=== PATIENT | male | born 1970 | race Caucasian/White ===

== ENCOUNTER 2017-06-28 11:05 | Observation (INO) | payer OTHER ==
[2017-06-28] VITALS (13 sets, daily range): BP systolic 109–155; BP diastolic 56–93; PULSE 70–100; TEMP 36.5–37.1; O2SAT 91–100; BMI 46.4
[~2017-06-28] VITALS: Ht 175.3 cm; Wt 150.6 kg
[~2017-06-28 11:05] MED LIST: ACYC1CAP8 PO; ANDG TOP; CIPR1TAB11 PO; DOCU100C31 PO; FLUC200T4 PO; HCTZ PO; LOSARTAN PO; ONDA4TAB46 PO; PROC1TAB5 PO; [UNRECOGNIZED DRUG - REMARK] PO
[2017-06-28] MEDS ORDERED: POLYETHYLENE (MIRALAX) 17 GM PACK PO PRN (13:00)
[2017-06-28] MEDS ORDERED: ACETAMINOPHEN 325 MG TAB PO PRN (13:00)
[2017-06-28] MEDS ORDERED: ONDANSETRON INJ 2 MG/ML 2 ML VIAL IV PRN (13:00)
[2017-06-28] MEDS ORDERED: ACETAMINOPHEN 325 MG TAB PO ONE (13:45)
[2017-06-28] MEDS ORDERED: HYDR25TA4 PO (13:47)
[2017-06-28] MEDS ORDERED: ACYC400T PO (13:47)
[2017-06-28] MEDS ORDERED: [UNRECOGNIZED DRUG - CODE] TD (13:47)
[2017-06-28] MEDS ORDERED: LOSA1TAB PO (13:47)
[2017-06-28] MEDS ORDERED: ONDA8TAB62 SL (13:47)
[2017-06-28] MEDS ORDERED: CIPR-255 PO (13:47)
[2017-06-28] MEDS ORDERED: FUROSEMIDE INJ 40 MG in SYRINGE 0 ML IV ONE (14:00)
[2017-06-28] MEDS ORDERED: DOCUSATE SODIUM 100 MG CAP PO PRN (14:00)
[2017-06-28] MEDS ORDERED: ONDANSETRON 8MG OD TAB SL PRN (14:00)
[2017-06-28] MEDS ORDERED: PROCHLORPERAZINE MALEATE 10 MG TAB PO PRN (14:00)
--- NOTE | 2017-06-28 14:03 | History and Physical ---
History & Physical Date & Time of Service: Jun 28, 2017 at 13:57 Chief Complaint: Thrombocytopenia Primary Care Physician: Bettina Murcia D.O. History of Present Illness Source: patient, clinic records, hospital records 47 yo M presents with severe pancytopenia in need of transfusions. With multiple transfusions in the past from this chronic MDS on chemotherapy, he has multiple antibodies that will need to be cleared through the lab initially. The amount of time for the transfusions needed will require an overnight stay. He is currently asymptomatic aside from a worsening of his chronic fatigue and dyspnea on exertion, which he says occurs when his counts get low. He was recently admitted to [facility] for neutropenic fever from -06/12/17 and states that since that time he has been feeling well. He is compliant with his suppressive therapy. He has a small bug bite that appears slightly ecchymotic on exam which is located on his R thigh just superior to his knee. He also reports some sores in his mouth from dentures that are minor. Otherwise he denies any chest pain, headaches, abdominal pain, nausea, vomiting, diarrhea, blood per rectum. He has been tolerating PO and has been active in his hobbies and in good spirits. Past Medical/Surgical History Medical Problems: (1) Congenital heart anomaly Status: Chronic (2) H/O venous thrombosis and embolism Status: Chronic (3) Hypogonadism in male Status: Chronic (4) Klinefelter syndrome karyotype 47, xxy Status: Chronic (5) MDS (myelodysplastic syndrome) Status: Chronic (6) Morbid obesity Status: Chronic (7) RENE (obstructive sleep apnea) Status: Chronic (8) Pancytopenia Status: Chronic Surgical Problems: (1) Heart valve replaced Status: Chronic (2) Status post knee surgery Status: Chronic (3) Status post tooth extraction Status: Chronic Family History Early CAD BROTHER BROTHER BROTHER FH: CAD (coronary artery disease) FATHER FH: colon cancer MOTHER FH: leukemia SISTER (40s) Social History Smoking Status: Never Smoker Smokeless Tobacco Use: No Alcohol Use: none Drug Use: none Marital Status: in relationship Housing status: lives alone Occupational Status: other Immunizations History of Influenza Vaccine: Yes Influenza Vaccine Date: Jul 18, 2009 History of Tetanus Vaccine?: Yes Tetanus Immunization Date: May 08, 2014 History of Pneumococcal: No History of Hepatitis B Vaccine: Yes Hepatitis Immunization Date: Nov 01, 2003 Multi-Drug Resistant Organisms History of MDRO: No Allergies Coded Allergies: Aspirin (Verified Allergy, Severe, ANAPHYLAXIS, 06/02/17) Penicillins (Verified Allergy, Intermediate, HIVES, 06/02/17) Cabbage (Verified Allergy, Unknown, "THROAT CLOSES", 06/02/17) Cyclobenzaprine (Verified Allergy, Unknown, DIARRHEA, 06/02/17) Hydrocodone (Verified Allergy, Unknown, ITCH, 06/02/17) Ibuprofen (Verified Allergy, Unknown, rash, 06/02/17) Home Medications Scheduled Acyclovir (Acyclovir), 400 MG PO BID Ciprofloxacin Hcl (Cipro), 500 MG PO BID Fluconazole (Diflucan), 200 MG PO DAILY Hydrochlorothiazide (Hctz), 1 TAB PO DAILY Losartan Potassium (Cozaar), 25 MG PO DAILY Testosterone (Testosterone Pump), 5 GM TD DAILY Scheduled PRN Docusate Sodium (Docusate Sodium), 1 CAP PO BID PRN for Constipation Ondansetron Odt (Zofran Odt), 8 MG SL Q6H PRN for Nausea Prochlorperazine Maleate (Compazine), 10 MG PO Q6H PRN for nausea Review of Systems At least ten systems were reviewed and negative except as indicated in HPI. 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 Pancytopenia-pt with symptomatic anemia requiring blood. Also with platelet level of 3K, requires platelet transfusion. Two of each were ordered with pretreatment with APAP and Benadryl. He is otherwise stable with no evidence of fevers or other signs/symptoms of infection. Repeat labwork in am. Cont chronic suppressive therapy. 2. HTN-controlled on HCTZ and Cozaar per outpatient regimen. DVT proh-SCDs, otherwise chemoprophy contraindicated 2/2 anemia and severe thrombocytopenia. Full Code Neutropenic precautions. Dispo-cont inpatient hospitalization until numbers rise and are stable, poss home tomorrow. DO Luis En[facility] Hospitalist Level of Care Med/Surg Resuscitation Status FULL RESUSCITATION VTE Prophylaxis VTE Risk Assessment Done? Y/N: Yes Risk Level: Moderate Given or contraindicated: SCD's, Contraindicated
[2017-06-28] MEDS ORDERED: IV FLUIDS COMPLETED PRN (14:45)
[2017-06-28] MEDS: ACYCLOVIR 400 MG TAB PO SCH (20:30)
[2017-06-28] MEDS: CIPROFLOXACIN 500 MG TAB PO SCH (20:31)
[2017-06-29] VITALS (13 sets, daily range): BP systolic 106–130; BP diastolic 66–85; PULSE 65–98; TEMP 36.3–37.4; O2SAT 94–100; BMI 48.2
[2017-06-29 06:46] LABS: BUN/CREATININE RATIO 22.2 (10-20); CALCIUM 8.1 mg/dl (8.5-10.1); CREATININE 1.1 mg/dl (0.60-1.40); POTASSIUM 3.6 mmol/L (3.5-5.1)
[2017-06-29 06:52] LABS: HEMATOCRIT 19.3 % (42-52); MEAN CELL VOLUME 81.8 fL (80-100); MEAN CORPUSCULAR HEMOGLOBIN 28.4 pg (25-34); MEAN CORPUSCULAR HGB CONC 34.7 g/dl (32-36); PLATELET COUNT 10 K/uL (130-400); RED BLOOD COUNT 2.36 M/uL (4.7-6.1); WHITE BLOOD COUNT 0.64 K/uL (4.8-10.8)
[2017-06-29 07:22] LABS: COMPLETE YES; EOS % 3.1 %; LYMPH % 87.5 %; LYMPH ABS # 0.56 K/uL (1.2-3.4); MONO % 3.1 %; NEUT % 6.3 %
[2017-06-29 07:26] LABS: PLT ESTIMATE SIGNIFIC DECREASED
[2017-06-29] MEDS ORDERED: TESTOSTERONE 5 GM TD SCH (08:00)
[2017-06-29] MEDS: FLUCONAZOLE 100 MG TAB PO SCH (08:22)
[2017-06-29] MEDS: HYDROCHLOROTHIAZIDE 25 MG TAB PO SCH (08:22)
[2017-06-29] MEDS: CIPROFLOXACIN 500 MG TAB PO SCH ×2 (08:22→19:48)
[2017-06-29] MEDS: ACYCLOVIR 400 MG TAB PO SCH ×2 (08:22→19:47)
[2017-06-29] MEDS: LOSARTAN POTASSIUM 25 MG TAB PO SCH (08:22)
[2017-06-29] MEDS ORDERED: ACETAMINOPHEN 325 MG TAB PO SCH (08:30)
[2017-06-29] MEDS ORDERED: FUROSEMIDE INJ 20 MG in SYRINGE 0 ML IV SCH (08:30)
--- NOTE | 2017-06-29 14:09 | Progress Note ---
Medicine Progress Note Date & Time of Visit: Jun 29, 2017 at 14:05. Subjective patient seen resting in bed, comfortable, alert, in good spirits states he feels ok overall denies chest pain, dyspnea, palpitations, dizziness, bleeding no other symptoms Objective Last 8 Hrs Date Time Temp Pulse Resp B/P (MAP) Pulse Ox O2 Delivery O2 Flow Rate FiO2 06/29/17 11:37 36.5 71 18 106/72 (83) 100 Room Air 06/29/17 09:45 36.4 85 16 125/85 99 06/29/17 09:30 36.4 84 16 118/77 100 06/29/17 09:11 36.7 78 18 130/82 06/29/17 08:15 Room Air 06/29/17 07:40 36.5 79 20 129/83 (98) 100 Room Air Physical Exam: General- oriented x 3, not in distress, speaks in sentences with no effort Eyes- EOMI, anicteric Neck- supple, no JVD Lungs- clear breath sounds bilaterally Heart- regular rhythm; no murmur, normal rate Abdomen- normal bowel sounds, soft, nontender Extremities- trace pretibial edema, no calf tenderness Neuro- alert, oriented x 3; no gross focal deficits Skin- warm & dry Laboratory Results: Last 24 Hours Test 06/29/17 05:50 White Blood Count 0.64 K/uL Red Blood Count 2.36 M/uL Hemoglobin 6.7 g/dL Hematocrit 19.3 % Mean Corpuscular Volume 81.8 fL Mean Corpuscular Hemoglobin 28.4 pg Mean Corpuscular Hemoglobin Concent 34.7 g/dl Platelet Count 10 K/uL Neutrophils (%) (Auto) 6.3 % Lymphocytes (%) (Auto) 87.5 % Monocytes (%) (Auto) 3.1 % Eosinophils (%) (Auto) 3.1 % Basophils (%) (Auto) 0.0 % Neutrophils # (Auto) 0.04 K/uL Lymphocytes # (Auto) 0.56 K/uL Monocytes # (Auto) 0.02 K/uL Eosinophils # (Auto) 0.02 K/uL Basophils # (Auto) 0.00 K/uL RDW Standard Deviation 43.8 fL RDW Coefficient of Variation 14.8 % Immature Granulocyte % (Auto) 0.0 % Immature Granulocyte # (Auto) 0.00 K/uL Platelet Estimate SIGNIFIC DECREASED Red Blood Cell Morphology Unremarkable Sodium Level 139 mmol/L Potassium Level 3.6 mmol/L Chloride Level 102 mmol/L Carbon Dioxide Level 31 mmol/L Anion Gap 6.0 mmol/L Blood Urea Nitrogen 24 mg/dl Creatinine 1.10 mg/dl Est Creatinine Clear Calc Drug Dose 116.9 ml/min Estimated GFR () 90.9 Estimated GFR (Non- 78.4 BUN/Creatinine Ratio 22.2 Random Glucose 96 mg/dl Calcium Level 8.1 mg/dl Assessment & Plan 47 yo M with pancytopenia 2/2 MDS on chemotherapy with last treatment 06/18/17 presents for transfusion 1. Pancytopenia - s/p 2 units pRBC and 1 plateletpharesis - Hg 6.7 Plt 10k - discussed with Dr. Chávez he recommends 2 more units of PRBC and 1 unit platelet, then discharge repeat CBC on ff up with him as outpatient - Cont chronic suppressive therapy. 2. HTN-controlled on HCTZ and Cozaar per outpatient regimen. DVT proh-SCDs, otherwise chemoprophy contraindicated 2/2 anemia and severe thrombocytopenia. Full Code Neutropenic precautions. Dispo-cont inpatient hospitalization until numbers rise and are stable, poss home tomorrow. Current Inpatient Medications: Current Inpatient Medications Medications (Trade) Dose Ordered Sig/Lamar Route Start Time Stop Time Status Last Admin Dose Admin Acetaminophen (Tylenol Tab) 650 mg Q4H PRN PO 06/28/17 13:00 07/28/17 12:59 Polyethylene (Miralax Powder Packet) 17 gm DAILY PRN PO 06/28/17 13:00 07/28/17 12:59 Ondansetron HCl (Zofran Inj) 4 mg Q6H PRN IV 06/28/17 13:00 07/28/17 12:59 Acyclovir (Zovirax Tab) 400 mg BID PO 06/28/17 20:00 07/28/17 19:59 06/29/17 08:22 400 MG Ciprofloxacin (Cipro Tab) 500 mg BID PO 06/28/17 20:00 07/28/17 19:59 06/29/17 08:22 500 MG Docusate Sodium (coLACE CAP) 100 mg BID PRN PO 06/28/17 14:00 07/28/17 13:59 Fluconazole (Diflucan Tab) 200 mg DAILY PO 06/29/17 08:00 07/29/17 07:59 06/29/17 08:22 200 MG Hydrochlorothiazide (Hydrochlorothiazide Tab) 25 mg DAILY PO 06/29/17 08:00 07/29/17 07:59 06/29/17 08:22 25 MG Losartan Potassium (coZAAR TAB) 25 mg DAILY PO 06/29/17 08:00 07/29/17 07:59 06/29/17 08:22 25 MG Ondansetron HCl (Zofran Odt) 8 mg Q6H PRN SL 06/28/17 14:00 07/28/17 13:59 Prochlorperazine Maleate (Compazine Tab) 10 mg Q6H PRN PO 06/28/17 14:00 07/28/17 13:59 Miscellaneous Information (Order Awaiting Action) 1 ea QS N/A 06/28/17 14:00 07/28/17 13:59 Miscellaneous (Iv Fluids Completed) 1 ea PRN PRN N/A 06/28/17 14:45 06/28/18 14:44 Acetaminophen (Tylenol Tab) 650 mg TODAY@0830 PO 06/29/17 08:30 06/29/17 23:59 Diphenhydramine HCl (Benadryl Cap) 25 mg TODAY@0830 PO 06/29/17 08:30 06/29/17 23:59 Furosemide 20 mg/ Syringe 2 ml @ 4 mls/min TODAY@0830 IV 06/29/17 08:30 06/29/17 23:59
[2017-06-30] VITALS (12 sets, daily range): BP systolic 109–130; BP diastolic 69–81; PULSE 65–92; TEMP 36.2–36.9; O2SAT 96–99; Ht 175.3 cm; Wt 150.6 kg
[2017-06-30] MEDS: HYDROCHLOROTHIAZIDE 25 MG TAB PO SCH (08:10)
[2017-06-30] MEDS: ACYCLOVIR 400 MG TAB PO SCH (08:10)
[2017-06-30] MEDS: LOSARTAN POTASSIUM 25 MG TAB PO SCH (08:11)
[2017-06-30] MEDS: FLUCONAZOLE 100 MG TAB PO SCH (08:11)
[2017-06-30] MEDS: CIPROFLOXACIN 500 MG TAB PO SCH (08:12)
--- NOTE | 2017-06-30 09:53 | Progress Note ---
Medicine Progress Note Date & Time of Visit: Jun 30, 2017 at 09:51. Subjective seen sleeping but easily rousable states he feels fine overall denies chest pain, dyspnea, dizziness, palpitations, bleeding states he feels at baseline, no symptoms states he is ready and would like to be discharged at noon Objective Last 8 Hrs Date Time Temp Pulse Resp B/P (MAP) Pulse Ox O2 Delivery O2 Flow Rate FiO2 06/30/17 09:20 36.3 76 18 109/72 98 06/30/17 09:05 36.2 92 127/81 98 06/30/17 08:40 36.3 83 20 119/76 06/30/17 08:15 Room Air 06/30/17 07:45 36.5 68 18 130/81 06/30/17 07:15 36.6 79 18 123/78 06/30/17 06:45 36.6 80 18 118/76 98 06/30/17 06:30 36.7 70 18 114/75 98 06/30/17 06:15 36.9 65 18 119/75 96 06/30/17 06:15 36.9 65 20 119/75 96 06/30/17 04:06 36.6 91 18 119/76 (90) 96 Room Air Physical Exam: General- oriented x 3, not in distress, speaks in sentences with no effort Eyes- anicteric Neck- no JVD Lungs- clear breath sounds bilaterally, no rales/wheezes Heart- regular rhythm; no murmur, normal rate Abdomen- normal bowel sounds, soft, nontender Extremities- trace pretibial edema, no calf tenderness Neuro- alert, oriented x 3; no gross focal deficits Skin- warm & dry Laboratory Results: Last 24 Hours Test 06/30/17 04:44 Assessment & Plan 47 yo M with pancytopenia 2/2 MDS on chemotherapy with last treatment 06/18/17 presents for transfusion 1. Pancytopenia - discussed with Dr. Chávez recommend prbc and plt transfusion, then ff up as outpatient - s/p 4 units pRBC and 2 plateletepharesis - repeat CBC: Hg 8.6, Plt 13k, WBC 0.68 repeat CBC on ff up with Dr. Chávez as outpatient - Cont chronic suppressive therapy. 2. HTN -controlled on HCTZ and Cozaar per outpatient regimen. d/c home today ff up with Dr. Chávez as scheduled ff up with PCP in 1 week Current Inpatient Medications: Current Inpatient Medications Medications (Trade) Dose Ordered Sig/Lamar Route Start Time Stop Time Status Last Admin Dose Admin Acetaminophen (Tylenol Tab) 650 mg Q4H PRN PO 06/28/17 13:00 07/28/17 12:59 06/29/17 22:32 650 MG Polyethylene (Miralax Powder Packet) 17 gm DAILY PRN PO 06/28/17 13:00 07/28/17 12:59 Ondansetron HCl (Zofran Inj) 4 mg Q6H PRN IV 06/28/17 13:00 07/28/17 12:59 Acyclovir (Zovirax Tab) 400 mg BID PO 06/28/17 20:00 07/28/17 19:59 06/30/17 08:10 400 MG Ciprofloxacin (Cipro Tab) 500 mg BID PO 06/28/17 20:00 07/28/17 19:59 06/30/17 08:12 500 MG Docusate Sodium (coLACE CAP) 100 mg BID PRN PO 06/28/17 14:00 07/28/17 13:59 Fluconazole (Diflucan Tab) 200 mg DAILY PO 06/29/17 08:00 07/29/17 07:59 06/30/17 08:11 200 MG Hydrochlorothiazide (Hydrochlorothiazide Tab) 25 mg DAILY PO 06/29/17 08:00 07/29/17 07:59 06/30/17 08:10 25 MG Losartan Potassium (coZAAR TAB) 25 mg DAILY PO 06/29/17 08:00 07/29/17 07:59 06/30/17 08:11 25 MG Ondansetron HCl (Zofran Odt) 8 mg Q6H PRN SL 06/28/17 14:00 07/28/17 13:59 Prochlorperazine Maleate (Compazine Tab) 10 mg Q6H PRN PO 06/28/17 14:00 07/28/17 13:59 Miscellaneous Information (Order Awaiting Action) 1 ea QS N/A 06/28/17 14:00 07/28/17 13:59 Miscellaneous (Iv Fluids Completed) 1 ea PRN PRN N/A 06/28/17 14:45 06/28/18 14:44
--- NOTE | 2017-06-30 10:02 | Discharge Instructions ---
Discharge Instructions Date of Service Jun 30, 2017. Admission Reason for Admission: Thrombocytopenia Discharge Discharge Diagnosis / Problem: ANEMIA, LOW PLATELETS Discharge Goals Goal(s): Diagnostic testing, Therapeutic intervention Activity Recommendations Activity Limitations: as noted below (RESUME ACTIVITY GRADUALLY TOLERATED) Lifting Limitations: until after follow-up appointment Exercise/Sports Limitations: until after follow-up appointment . Instructions / Follow-Up Instructions / Follow-Up PLEASE CALL YOUR PRIMARY CARE DOCTOR OR CORONER TECHNICIAN IMMEDIATELY OR RETURN TO THE ER IF WITH WEAKNESS, DIZZINESS, SHORTNESS OF BREATH, SIGNS OF BLEEDING. FOLLOW UP WITH DR. GARCIA SCHEDULED. FOLLOW UP WITH PRIMARY CARE PHYSICIAN DR. MEZA ON Wednesday AT 11:30AM. Current Hospital Diet Patient's current hospital diet: AHA Diet (Heart Healthy) Discharge Diet Recommended Diet: AHA Diet (Heart Healthy) Procedures Procedures Performed: PACKED RED BLOOD CELL AND PLATELET TRANSFUSION Pending Studies Studies pending at discharge: yes List of pending studies: REPEAT CBC C/O DR. GARCIA Medical Emergencies . Who to Call and When: Medical Emergencies: If at any time you feel your situation is an emergency, please call 911 immediately. . Non-Emergent Contact Non-Emergency issues call your: Primary Care Provider, Specialist (CORONER TECHNICIAN ) Call Non-Emergent contact if: you have a fever, you have any medication questions . . "Provider Documentation" section prepared by Ko Hargrove. . VTE Core Measure Inpt VTE Proph given/why not?: SCD's, Contraindicated
[2017-06-30 12:05] LABS: BUN/CREATININE RATIO 28.6 (10-20); CALCIUM 8.4 mg/dl (8.5-10.1); CREATININE 0.92 mg/dl (0.60-1.40); POTASSIUM 3.8 mmol/L (3.5-5.1)
--- NOTE | 2017-06-30 12:05 | Discharge Summary ---
Discharge Summary Date of Service Jun 30, 2017. Discharge Summary Admission Date: Jun 28, 2017 at 13:01 Discharge Date: Jun 30, 2017 Discharge Disposition: Home Principal Diagnosis: Pancytopenia Secondary Diagnoses/Problems: HTN Procedures: s/p pRBC and Plt transfusion Pending Studies/Follow-Up: repeat CBC as outpatient Medication Reconciliation Continued Medications: Acyclovir (Acyclovir) 400 Mg Tab 400 MG PO BID, 3 Refills Ciprofloxacin Hcl (Cipro) 500 Mg Tab 500 MG PO BID Docusate Sodium (Docusate Sodium) 100 Mg Cap 1 CAP PO BID PRN for Constipation Fluconazole (Diflucan) 200 Mg Tab 200 MG PO DAILY, TAB Hydrochlorothiazide (Hctz) 25 Mg Tab 1 TAB PO DAILY for 30 Days, #30 TAB 5 Refills Losartan Potassium (Cozaar) 25 Mg Tab 25 MG PO DAILY, 5 Refills Ondansetron Odt (Zofran Odt) 8 Mg Soltab 8 MG SL Q6H PRN for Nausea, TAB Prochlorperazine Maleate (Compazine) 10 Mg Tab 10 MG PO Q6H PRN for nausea, TAB Testosterone (Testosterone Pump) 1 % Gel 5 GM TD DAILY Admission Information HPI (per Admitting provider): 47 yo M presents with severe pancytopenia in need of transfusions. With multiple transfusions in the past from this chronic MDS on chemotherapy, he has multiple antibodies that will need to be cleared through the lab initially. The amount of time for the transfusions needed will require an overnight stay. He is currently asymptomatic aside from a worsening of his chronic fatigue and dyspnea on exertion, which he says occurs when his counts get low. He was recently admitted to [facility] for neutropenic fever from -06/12/17 and states that since that time he has been feeling well. He is compliant with his suppressive therapy. He has a small bug bite that appears slightly ecchymotic on exam which is located on his R thigh just superior to his knee. He also reports some sores in his mouth from dentures that are minor. Otherwise he denies any chest pain, headaches, abdominal pain, nausea, vomiting, diarrhea, blood per rectum. He has been tolerating PO and has been active in his hobbies and in good spirits. 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 PANCYTOPENIA - discussed with Dr. Chávez recommend prbc and plt transfusion, then ff up as outpatient - s/p 4 units pRBC and 2 plateletepharesis - repeat CBC, improved: Hg 8.6, Plt 13k, WBC 0.68 repeat CBC on ff up with Dr. Chávez as outpatient - Cont chronic suppressive therapy. 2. HTN -controlled on HCTZ and Cozaar per outpatient regimen. 3. RIGHT UPPER LEG LESION - possible folliculitis vs. insect bite - area demarcated, improving erythema no tenderness/warmth - monitor as outpatient d/c home today ff up with Dr. Chávez as scheduled ff up with PCP in 1 week Total time spent on discharge = 25 MINUTES This includes examination of the patient, discharge planning, medication reconciliation, and communication with other providers. Discharge Instructions Discharge Instructions Date of Service Jun 30, 2017. Admission Reason for Admission: Thrombocytopenia Discharge Discharge Diagnosis / Problem: ANEMIA, LOW PLATELETS Discharge Goals Goal(s): Diagnostic testing, Therapeutic intervention Activity Recommendations Activity Limitations: as noted below (RESUME ACTIVITY GRADUALLY TOLERATED) Lifting Limitations: until after follow-up appointment Exercise/Sports Limitations: until after follow-up appointment . Instructions / Follow-Up Instructions / Follow-Up PLEASE CALL YOUR PRIMARY CARE DOCTOR OR AIR TRAFFIC CONTROL SPECIALIST IMMEDIATELY OR RETURN TO THE ER IF WITH WEAKNESS, DIZZINESS, SHORTNESS OF BREATH, SIGNS OF BLEEDING. FOLLOW UP WITH DR. CHÁVEZ SCHEDULED. FOLLOW UP WITH PRIMARY CARE PHYSICIAN DR. MEZA ON Wednesday AT 11:30AM. Current Hospital Diet Patient's current hospital diet: AHA Diet (Heart Healthy) Discharge Diet Recommended Diet: AHA Diet (Heart Healthy) Procedures Procedures Performed: PACKED RED BLOOD CELL AND PLATELET TRANSFUSION Pending Studies Studies pending at discharge: yes List of pending studies: REPEAT CBC C/O DR. CHÁVEZ
[2017-06-30 12:09] LABS: HEMATOCRIT 25.3 % (42-52); MEAN CELL VOLUME 83.2 fL (80-100); MEAN CORPUSCULAR HEMOGLOBIN 28.3 pg (25-34); MEAN PLATELET VOLUME 8.8 fL (7.4-10.4); PLATELET COUNT 13 K/uL (130-400); RED BLOOD COUNT 3.04 M/uL (4.7-6.1); WHITE BLOOD COUNT 0.68 K/uL (4.8-10.8)
[2017-06-30 12:10] LABS: COMPLETE YES; EOS % 1.5 %; LYMPH % 86.8 %; LYMPH ABS # 0.59 K/uL (1.2-3.4); MONO % 2.9 %; NEUT % 8.8 %
[2017-06-30 12:11] LABS: PLT ESTIMATE SIGNIFIC DECREASED
== END 2017-06-30 12:24 | disposition home or self-care (01) ==
LOC: C.4E 12:29 → UNDOADMOB 12:29 → C.4E 13:01
PROVIDERS: ADMIT Internal Medicine; ATTEND Internal Medicine
DX: D61.810 Antineoplastic chemotherapy induced pancytopenia (principal); D69.6 Thrombocytopenia, unspecified; D46.9 Myelodysplastic syndrome, unspecified; L98.9 Disorder of the skin and subcutaneous tissue, unspecified; I10 Essential (primary) hypertension; Q98.0 Klinefelter syndrome karyotype 47, XXY; E66.09 Other obesity due to excess calories; G47.33 Obstructive sleep apnea (adult) (pediatric); Z95.2 Presence of prosthetic heart valve; Z82.49 Family history of ischemic heart disease and other diseases of the circulatory system; Z80.0 Family history of malignant neoplasm of digestive organs; Z80.6 Family history of leukemia; Z86.718 Personal history of other venous thrombosis and embolism

== ENCOUNTER 2018-11-09 11:18 | Inpatient (IN) ==
[2018-11-09] MEDS ORDERED: ONDANSETRON INJ 2 MG/ML 2 ML VIAL IV PRN (11:57)
[2018-11-09] MEDS ORDERED: POLYETHYLENE (MIRALAX) 17 GM PACK PO PRN (11:57)
[2018-11-09] MEDS ORDERED: SODIUM CHLORIDE 0.9% 250 ML IV PRN ×2 (12:01→14:05)
[2018-11-09] MEDS ORDERED: ACETAMINOPHEN 325 MG TAB PO ONE (13:15)
[2018-11-09 13:34] LABS: Albumin Level 2.8 gm/dl (3.4-5.0); BUN Creatinine Ratio 27.7 (10-20); Bilirubin Direct 0.1 mg/dl (0-0.2); Calcium 7.9 mg/dl (8.5-10.1); Creatinine Clr Calc Pharmacy 164.4 ml/min; Dohle Bodies 1+; Est GFR (African American) 118.3; Est GFR (Non-African American) 102.1; Hematocrit (blood only) 12.1 % (42-52); Hemoglobin 4.4 g/dL (14.0-18.0); Mean Corpuscular Hgb Conc 36.4 g/dL (32-36); Mean Corpuscular Volume 79.6 fL (80-100); Mean Platelet Volume 8.1 fL (7.4-10.4); Platelet Count 15 K/uL (130-400); Potassium 3.4 mmol/L (3.5-5.1); RDW Coefficient of Variation 12.3 % (11.5-14.5); RDW Standard Deviation 35.3 fL (36.4-46.3); Red Blood Count 1.52 M/uL (4.7-6.1); Toxic Granulation 1+
[2018-11-09 13:36] LABS: ALC (manual) 0.47 K/uL (1.2-3.4); Blast # (manual) 0.01 K/uL (0-0); Lymphocytes # (manual) 0.47 K/uL (1.2-3.4); Lymphocytes % (manual) 78.8 %; Monocytes # (manual) 0.02 K/uL (0.11-0.59); Myelocytes # (manual) 0.01 K/uL (0-0); Neutrophils % (manual) 16.2 %
[2018-11-09 13:37] LABS: Bilirubin,Total 0.4 mg/dl (0.2-1); Total Protein 7.3 gm/dl (6.4-8.2)
[2018-11-09] MEDS ORDERED: TRAMADOL HCL 50 MG TABLET PO PRN (13:43)
--- NOTE | 2018-11-09 14:29 | History & Physical Report ---
Date of Service November 09, 2018 Assessment & Plan (1) Neutropenia: had fevers and chills and diaphoresis at home no cough, no dysuria, no abdominal pain, no altered mental status likely just a neutropenic fever blood cultures drawn cover empirically for 48 hours with Cefepime neutropenic precautions Dr. Chávez following (2) Severe anemia: Hb 4.4 today, will transfuse 4 units total this is due to MDS, patient needs bone marrow transplant, has pancytopenia ordered irradiated PRBC due to neutropenia will give Lasix 20mg IV in between 2nd and 3rd unit repeat H/H in the morning Dr. Chávez following (3) Fever: likely neutropenic fever treat with Tylenol PRN (4) Pancytopenia: due to MDS check CBC daily platelets are 15k (5) MDS (myelodysplastic syndrome): responded well to initial treatment for about one year became refractory to treatment now with bone marrow failure, pancytopenia has required numerous blood transfusions his sister is perfect match for bone marrow transplant plans in place for transplant next week at [facility] follows locally with Dr. Chávez (6) Hypertension: BP stable (7) RENE (obstructive sleep apnea): can use his own machine girlfriend will try to bring it in History of Present Illness Chief Complaint: I broke out in a sweat at home Primary Care Provider: Shruti Hackett PA-C 48 yo male with history of MDS. Initially responded well to treatment under the care of Dr. Chávez. However, after about one year he became refractory to treatment. He developed severe pancytopenia and has relied upon transfusions of platelets and hemoblogin. It quickly became apparent that a bone marrow transplant would be his only hope of cure. He was referred to [facility] to begin the search. It turned out that the patient's sister was perfect match. Initially scheduled to go to [place] this week with sister but delayed due to weather. Yesterday on routine lab work he was severely anemic so Dr. Chávez arranged for transfusion of two units of PRBC today. Last night the patient developed fever, rigors, chills and then significant diaphoresis. He has experienced this before with neutropenic fevers. He denies having any specific symptoms to suggest infection. No cough, no abdominal pain, no dysuria , no altered mental status. Discussed with Dr. Chávez, recommends admission for blood transfusion and treatment for neutropenic fever. Allergies Allergy/AdvReac Type Severity Reaction Status Date / Time aspirin Allergy Severe ANAPHYLAXIS Verified 11/09/18 08:08 ibuprofen Allergy Severe Anaphylaxis Verified 11/09/18 08:08 Penicillins Allergy Intermediate HIVES Verified 11/09/18 08:08 cabbage Allergy Unknown "THROAT Verified 11/09/18 08:08 CLOSES" hydrocodone Allergy Unknown ITCH Verified 11/09/18 08:08 naproxen AdvReac Severe renal Verified 11/09/18 08:08 failure cyclobenzaprine AdvReac Unknown DIARRHEA Verified 11/09/18 08:08 Home Medications Home Medications Medication Instructions Recorded Confirmed Type acyclovir 400 mg PO BID #0 06/28/17 11/09/18 History hydrochlorothiazide 25 mg PO DAILY 30 Days #30 tab 06/28/17 11/09/18 History losartan 25 mg PO DAILY #0 06/28/17 11/09/18 History testosterone 1 packet TRANSDERMAL DAILY #0 06/28/17 11/09/18 History tramadol 50 mg PO Q4H PRN 07/15/18 11/09/18 History sennosides [senna] 8.6 mg PO BID PRN 07/22/18 11/09/18 History acetaminophen [Tylenol Extra 500 mg PO QID PRN 09/09/18 11/09/18 History Strength] allopurinol 300 mg PO DAILY 09/09/18 11/09/18 History gabapentin [Neurontin] 100 mg PO TID 09/29/18 11/09/18 History Past Med/Surg History Family History Other No significant family history Social History Current Living Situation: Other Other Information That Helps Us Care for You: No Feels Safe at Home: Yes Safety Concerns: Feels Safe At This Time Smoking Status: Never smoker Hx Alcohol Use: No Hx Substance Use: No Beliefs That Will Affect Care: Sabianist Preferred Language: Slovak Communication Ability: Effective Review of Systems All systems reviewed & are unremarkable except as noted in HPI & below Constitutional: + fever, + chills, + sweats, + fatigue and + weakness; no weight loss and no insomnia Respiratory: no cough and no dyspnea Cardiovascular: no chest pain Gastrointestinal: no abdominal pain, no nausea, no vomiting, no constipation and no diarrhea/loose stools Physical Exam 2 Vital Signs (Past 24 Hours): Last Vital Signs Temp 36.5 C 11/09/18 13:16 Pulse 81 11/09/18 13:16 Resp 16 11/09/18 13:16 BP 137/78 11/09/18 13:16 Constitutional: WD/WN, vitals as above + obese Eyes: normal visual cardoso by confrontation, + conjunctival abnormality (palor ), PERRL and EOM intact bilaterally ENMT: external ear and nose normal, oropharynx normal Neck: trachea midline, no thyromegaly Respiratory: normal respiratory effort, lungs clear to auscultation Cardiovascular: RRR, no murmur, no edema Gastrointestinal (Abdomen): normal bowel sounds, soft, nontender, no hepatosplenomegaly Musculoskeletal: no cyanosis or clubbing, extremities motor strength 5/5 Skin: no rashes, warm and dry + pallor Neurologic: patellar DTR's 2+ bilat, sensation intact and PERRL, EOMI, accommodation nl, no face palsy, no dysarthria Psychiatric: A+Ox3, euthymic affect Lymphatic: no cervical or axillary lymphadenopathy Results & Data Laboratory Results Laboratory Results - last 24 hr 11/08/18 11/08/18 11/09/18 08:44 10:52 12:29 WBC 0.60 L* RBC 1.52 L Hgb 4.4 L* Hct 12.1 L* MCV 79.6 L MCH 28.9 MCHC 36.4 H RDW Std Deviation 35.3 L RDW Coeff of Olu 12.3 Plt Count 15 L* MPV 8.1 Neutrophils % (Manual) 16.2 Lymphocytes % (Manual) 78.8 Monocytes % (Manual) 3.0 Myelocytes % (Man) 1.0 Blast Cells % (Manual) 1.0 Neutrophils # (Manual) 0.10 L Total Absolute Neuts 0.10 L* Lymphocytes # (Manual) 0.47 L Total Abs Lymphocytes 0.47 L Monocytes # (Manual) 0.02 L Myelocytes # (Manual) 0.01 H Blast Cells # (Man) 0.01 H Toxic Granulation 1+ Dohle Bodies 1+ Platelet Estimate SIGNIFIC DECREASED Sodium Potassium Chloride Carbon Dioxide Anion Gap BUN Creatinine Est Cr Clr Drug Dosing Est GFR ( Amer) Est GFR (Non-Af Amer) BUN/Creatinine Ratio Glucose Calcium Total Bilirubin Direct Bilirubin AST ALT Alkaline Phosphatase Total Protein Albumin Urine Color Urine Appearance Urine pH Ur Specific [place] Urine Protein Urine Glucose (UA) Urine Ketones Urine Blood Urine Nitrite Urine Bilirubin Urine Urobilinogen Ur Leukocyte Esterase Blood Type O Positive Antibody Screen POSITIVE A Antibody Identification Anti-Kpa Antibody ID Referred Crossmatch See Detail 11/09/18 11/09/18 12:29 Unknown WBC RBC Hgb Hct MCV MCH MCHC RDW Std Deviation RDW Coeff of [place]lu Plt Count MPV Neutrophils % (Manual) Lymphocytes % (Manual) Monocytes % (Manual) Myelocytes % (Man) Blast Cells % (Manual) Neutrophils # (Manual) Total Absolute Neuts Lymphocytes # (Manual) Total Abs Lymphocytes Monocytes # (Manual) Myelocytes # (Manual) Blast Cells # (Man) Toxic Granulation Dohle Bodies Platelet Estimate Sodium 138 Potassium 3.4 L Chloride 103 Carbon Dioxide 29 Anion Gap 6.0 BUN 23 H Creatinine 0.84 Est Cr Clr Drug Dosing 164.4 Est GFR ( Amer) 118.3 Est GFR (Non-Af Amer) 102.1 BUN/Creatinine Ratio 27.7 H Glucose 101 H Calcium 7.9 L Total Bilirubin 0.4 Direct Bilirubin 0.1 AST 77 H ALT 224 H Alkaline Phosphatase 74 Total Protein 7.3 Albumin 2.8 L Urine Color Yellow Urine Appearance Clear Urine pH 5.0 Ur Specific [place] 1.012 Urine Protein Negative Urine Glucose (UA) Negative Urine Ketones Negative Urine Blood Negative Urine Nitrite Negative Urine Bilirubin Negative Urine Urobilinogen Negative Ur Leukocyte Esterase Negative Blood Type Antibody Screen Antibody Identification Antibody ID Referred Crossmatch Medications Administered Current Inpatient Medications Acetaminophen (Tylenol) 650 mg PO Q4H PRN PRN Reason: pain/fever Stop: 12/09/18 11:56 Acyclovir (Zovirax) 400 mg PO BID YVETTE Stop: 12/09/18 20:59 Last Admin: 11/09/18 21:47 Dose: 400 mg Allopurinol (Zyloprim) 300 mg PO DAILY [facility] Stop: 12/10/18 08:59 Gabapentin (Neurontin) 100 mg PO TID [facility] Stop: 12/09/18 15:14 Last Admin: 11/09/18 21:47 Dose: 100 mg Cefepime HCl 1,000 mg/ Syringe 11.3 mls @ 5.5 mls/min IV Q12H YVETTE Stop: 11/11/18 13:59 Last Admin: 11/09/18 15:37 Dose: 5.5 mls/min Sodium Chloride (Nss 1000ml) 1,000 mls @ 80 mls/hr IV .[id number] YVETTE Stop: 12/09/18 13:29 Last Admin: 11/09/18 18:31 Dose: 80 mls/hr Sodium Chloride (Nss 250ml) 250 mls @ 15 mls/hr IV .[id number] PRN PRN Reason: For Transfusion Stop: 12/09/18 12:00 Sodium Chloride (Nss 250ml) 250 mls @ 15 mls/hr IV .[id number] PRN PRN Reason: For Transfusion Stop: 12/09/18 14:04 Miscellaneous (Order Awaiting Action) 1 ea N/A QS YVETTE Stop: 12/09/18 15:59 Last Admin: 11/09/18 15:38 Dose: Not Given Ondansetron HCl (Zofran) 4 mg IV Q6H PRN PRN Reason: Nausea Stop: 12/09/18 11:56 Polyethylene Glycol (Miralax Powder Packet) 17 gm PO DAILY PRN PRN Reason: Constipation Stop: 12/09/18 11:56 Sennosides (Senokot) 8.6 mg PO BID PRN PRN Reason: constipation Stop: 12/09/18 13:42 Tramadol HCl (Ultram) 50 mg PO Q4H PRN PRN Reason: Pain Stop: 12/09/18 13:42 Code Status & VTE Plan Code Status full code VTE Prophylaxis Plan VTE Prophylaxis will be ordered: No Reason for no VTE drug order: Contraindicated (thrombocytopenia) Reason for no VTE mechanical prophylaxis: Refusal of treatmnt by pt
--- NOTE | 2018-11-09 14:58 | Consultation Report ---
DATE OF CONSULTATION: 11/09/2018 HEMATOLOGY CONSULTATION REASON FOR CONSULTATION: Neutropenic fever in a 48-year-old gentleman with high-risk myelodysplasia. HISTORY OF PRESENT ILLNESS: Luis A is a pleasant 48-year-old gentleman well known to [facility], currently under my care with a high-grade myelodysplasia. Luis A actually was in [facility] in preparation to receive transfused platelets and packed RBCs. He reported to the nursing staff he was not feeling well. I went down to a chair side to examine Luis A and explained to me he had suffered a low-grade fever which began last night. He actually woke up this morning, soaking wet, sensing his fever most likely broke. He did not take his temperature last night. Apparently, he had low-grade fever in [facility] this morning, which subsequently subsided spontaneously. Luis A has been suffering from myelodysplasia for close to 5 years now. I had treated him with 5-azacitidine and his counts actually responded quite nicely for about 13 months. He has been off chemotherapy now for at least 4 months. He is chronically pancytopenic and requires considerable transfusional support, particularly platelets and RBCs. He is functionally neutropenic and my fear he may be developing an occult infection and therefore asked the hospitalist service to proceed with admission. The only other symptomatology is some mild nausea, but he has been more jittery, sort of lightheaded and again feeling he needs to be admitted and worked up. PAST SURGICAL HISTORY: Significant for hypertension, morbid obesity and myelodysplasia. HOME MEDICATIONS: Include testosterone transdermal gel 1% topical, fluconazole 200 mg 2 tablets p.o. b.i.d., losartan 25 mg p.o. daily, acyclovir 400 mg p.o. b.i.d. He was on prophylactic ciprofloxacin 500 mg p.o. daily, hydrochlorothiazide 25 mg p.o. daily, Zofran 8 mg q. 8 hours p.r.n. ALLERGIES: PENICILLINS, ASPIRIN, CYCLOBENZAPRINE, HYDROCODONE, AND IBUPROFEN. SOCIAL HISTORY: The patient is currently on disability. He has a significant other. He is a nonsmoker, nondrinker. FAMILY HISTORY: Strong family history of hematologic malignancies including RUNX1 mutation. REVIEW OF SYSTEMS: As per HPI most notable for fevers, chills and sweats. He is morbidly obese. SKIN: No rashes or lesions. No history of dermatoses. HEENT: Denies headaches. Positive for intermittent lightheadedness and/or dizziness. No sinus symptoms, sore throat or dysphagia. LYMPH: No history of lymphoproliferative disease. CARDIAC: Negative for angina or palpitations. PULMONARY: Negative for COPD. No shortness of breath, dyspnea or orthopnea. No cough or hemoptysis. GASTROINTESTINAL: Positive for nausea. He has not vomited. No diarrhea or constipation reported. No hematochezia or melena. GENITOURINARY: He admits to polyuria, but not hematuria or dysuria. He has no history of prostate disease. ENDOCRINE: Negative for diabetes or thyroid disease. NEUROLOGIC: Negative for seizure, stroke, or migraine headache by history. MUSCULOSKELETAL: No arthralgias or myalgias. No muscle weakness. HEMATOLOGIC: Positive for chronic pancytopenia attributable to high-grade myelodysplasia. PHYSICAL EXAMINATION: GENERAL: Morbidly obese 48-year-old, awake, alert and appropriate, in no acute distress at this time. VITAL SIGNS: Pending at the time of dictation. HEENT: Head: Atraumatic, normocephalic. Eyes: PERRLA, EOMI. Sclerae nonicteric. No conjunctival injection. Nares are patent without rhinorrhea or discharge. Throat is clear. Tongue is midline. Mucous membranes are moist. NECK: Supple without JVD or thyromegaly. Trachea is midline. LYMPH: No cervical, supraclavicular palpable nodes. HEART: Regular rate and rhythm. No clicks, rubs, murmurs or gallops. LUNGS: Clear to auscultation bilaterally. ABDOMEN: Soft, obese, nontender, nondistended, without palpable hepatosplenomegaly. EXTREMITIES: Musculoskeletal strength is equal in all 4 extremities. Pulses are equal as well. No clubbing, cyanosis or edema otherwise. NEUROLOGICALLY: He is awake, alert and oriented x3. Cranial nerves II-XII are intact. LABORATORY DATA: Pending at time of dictation. Have recommended obtaining CBC, CMP and macias cultures of both blood and urine. IMPRESSION: 1. Neutropenic fever. 2. High-grade myelodysplasia. PLAN: Luis A is a very pleasant 48-year-old gentleman with high-grade MDS, currently under my care. Unfortunately, he has become increasingly transfusion dependent and was at [facility] this morning to receive transfusion. During his encounter, he admitted to nursing that he had fever last night and just generally is not feeling well. This gentleman has battled through neutropenia for quite some time and may be developing an occult infection. We will proceed with a blood transfusion this afternoon. Blood and urine cultures have been obtained. I recommend putting him on aggressive gram-negative coverage. Should probably also obtain a chest x-ray. Would continue supportive measures, IV hydration. Maintain regular diet. Will follow [place] closely along with you. [facility], he has a suitable female donor and will be transplanted by physicians in [facility] hopefully in the next month or so. Thank you very much for assisting us in the care of this very pleasant, somewhat complex gentleman. LADONNA
[2018-11-09] MEDS ORDERED: FUROSEMIDE 20 MG in SYRINGE 0 ML IV ONE (15:00)
[2018-11-09] MEDS: CEFEPIME 1,000 MG in SYRINGE 0 ML IV SCH (15:37)
[2018-11-09] MEDS: GABAPENTIN 100 MG CAP PO SCH ×2 (15:37→21:47)
[2018-11-09] MEDS: TESTOSTERONE~ORDER AWAITING ACTION SCH ×2 (15:38→23:47)
[2018-11-09] MEDS: SODIUM CHLORIDE 0.9% 1000ML 1,000 ML IV SCH (18:31)
[2018-11-09] MEDS: ACYCLOVIR 400 MG TAB PO SCH (21:47)
[2018-11-09 22:29] LABS: Appearance Urine Clear (Clear); Bilirubin Urine Negative (Negative); Color Urine Yellow; Glucose Urine UA Negative (Negative); Ketones Urine Negative (Negative); Leukocyte Esterase Urine Negative (Negative); Nitrite Urine Negative (Negative); Protein Urine Negative (Negative); Specific Gravity Urine 1.012 (1.000-1.030); Urobilinogen Urine Negative (Negative)
[2018-11-10] MEDS: ACETAMINOPHEN 325 MG TAB PO PRN ×3 (01:50→21:34)
[2018-11-10] MEDS: CEFEPIME 1,000 MG in SYRINGE 0 ML IV SCH ×2 (05:31→16:13)
[2018-11-10 06:39] LABS: Calcium 8.2 mg/dl (8.5-10.1); Creatinine Clr Calc Pharmacy 168.4 ml/min; Est GFR (African American) 119.5; Est GFR (Non-African American) 103.1; Hematocrit (blood only) 17.5 % (42-52); Hemoglobin 6.2 g/dL (14.0-18.0); Mean Corpuscular Hgb Conc 35.4 g/dL (32-36); Mean Corpuscular Volume 80.3 fL (80-100); Mean Platelet Volume 9.8 fL (7.4-10.4); Platelet Count 12 K/uL (130-400); Potassium 3.8 mmol/L (3.5-5.1); RDW Coefficient of Variation 13.3 % (11.5-14.5); RDW Standard Deviation 38.9 fL (36.4-46.3); Red Blood Count 2.18 M/uL (4.7-6.1); White Blood Count 0.56 K/uL (4.8-10.8)
[2018-11-10 07:00] LABS: Toxic Granulation 1+
[2018-11-10 07:07] LABS: ALC (manual) 0.46 K/uL (1.2-3.4); Blast # (manual) 0.01 K/uL (0-0); Blast Cells % (manual) 1.8 %; Eosinophils # (manual) 0.02 K/uL (0-0.5); Lymphocytes # (manual) 0.46 K/uL (1.2-3.4); Lymphocytes % (manual) 81.8 %; Monocytes # (manual) 0.02 K/uL (0.11-0.59); Monocytes % (manual) 3.1 %; Neutrophils % (manual) 10.6 %
[2018-11-10] MEDS: ALLOPURINOL 300 MG TAB PO SCH (07:22)
[2018-11-10] MEDS: ACYCLOVIR 400 MG TAB PO SCH ×2 (08:08→20:18)
[2018-11-10] MEDS: GABAPENTIN 100 MG CAP PO SCH ×3 (08:09→20:18)
[2018-11-10] MEDS: SENNA 8.6 MG TAB PO PRN (08:09)
[2018-11-10] MEDS: TESTOSTERONE~ORDER AWAITING ACTION SCH ×2 (08:10→16:13)
--- NOTE | 2018-11-10 08:52 | Progress Note ---
DATE: 11/10/2018 HEMATOLOGY PROGRESS NOTE DIAGNOSES: 1. Neutropenic fever. 2. High-grade myelodysplasia. 3. Nausea. SUBJECTIVE: Luis A was seen and examined at bedside today. Clinically, feeling much better with IV hydration and supportive meds. Thus far, blood and urine cultures are pending. Review of his urinalysis does not suggest underlying urinary tract infection. He has no complaints of shortness of breath or dyspnea at this time. States he consumed 100% of his diet and is ambulating ad fox. He has no specific complaints and nursing reports no overnight difficulties. OBJECTIVE: GENERAL: Morbidly obese 48-year-old gentleman in no acute distress. VITAL SIGNS: Temperature 36.5, pulse 78, respiratory rate 18, blood pressure 115/71. SKIN: Without rash or lesions. HEENT: Oral mucosa without evidence of thrush. HEART: Regular rate and rhythm. LUNGS: Clear to auscultation bilaterally. ABDOMEN: Soft, nontender, nondistended. EXTREMITIES: No clubbing, cyanosis, or edema. NEUROLOGIC: Grossly intact. LABORATORY DATA: WBC count 560, hemoglobin 6.2, platelet count 12,000, absolute neutrophil count 60. Sodium 136, potassium 3.8, chloride 104, carbon dioxide 27, BUN 22, creatinine 0.82, albumin 2.8. IMPRESSION: 1. Neutropenic fever. 2. High-grade myelodysplasia. 3. Nausea. 4. Hypoalbuminemia. PLAN: Luis A seems to be doing a bit better today. If his cultures prove to be negative, once he receives all ordered transfusion products, he could be discharged home. Luis A is followed in the office very closely and we will ensure followup upon discharge. He needs to work on his protein intake and perhaps less carbohydrates. Plan moving forward is incorporation of dacogen and Venclexta as recommended by Dr. Marcello Juarez at [facility]. I appreciate your assistance in the care of this very pleasant gentleman.
[2018-11-10 13:02] LABS: Influenza A virus by PCR Neg for Influ A (Neg); Influenza B virus by PCR Neg for Influ B (Neg)
[2018-11-10] MEDS: SODIUM CHLORIDE 0.9% 1000ML 1,000 ML IV SCH (13:37)
--- NOTE | 2018-11-10 18:23 | Hospitalist Progress Note ---
Date of Service November 10, 2018 Assessment & Plan (1) Neutropenic fever: cont cefepime. remains at risk of numerous pathogens in light of severe neutropenia including gram positives (due to port). low threshold to add vanco IV. checked flu PCR - this was negative. despite fever & neutropenia patient is stable and looks well. cont neutropenic precautions. (2) MDS (myelodysplastic syndrome): severe. awaiting opinion at [facility] about bone marrow transplant. supportive care including transfusional support - s/p 4 units PRBCs this admission deferring on platelets for now appreciate heme/onc consultation Cbc in am (3) Pancytopenia: 2nd to MDS check b12/folate in AM to be complete (I can't see that these have been done in the last year or two) (4) Morbid obesity: BMI 50 (5) History of heart valve replacement: (6) Hypertension: BPs acceptable at this time (7) Abnormal LFTs: check HepC ab due to numerous tattoos if negative --- due to fatty liver? other? (8) DVT prophylaxis: SCDs chemical means contraindicated due to low platelets Subjective saw the patient twice today - during first visit he asked about d/c home. he "felt great" and appetite was improved. denied any complaints. during 2nd visit he was agreeable to staying until the AM so we could follow his blood cultures. denied any recent sick contacts or travel. Constitutional: + fever; no chills and no anorexia Ear, Nose, Mouth, Throat: + dry mouth; no mouth lesions and no sore throat Respiratory: no cough and no dyspnea Cardiovascular: no chest pain Gastrointestinal: no abdominal pain, no vomiting and no diarrhea/loose stools Genitourinary (Male): no dysuria Integumentary: no rash Physical Exam 2 Vital Signs (Past 24 Hours): Last Vital Signs Temp 37.0 C 11/10/18 15:28 Pulse 89 11/10/18 15:28 Resp 23 11/10/18 15:28 BP 143/86 H 11/10/18 15:28 Pulse Ox 95 11/10/18 15:28 Constitutional: + morbidly obese; no acute distress and not ill appearing ENMT: external ear and nose normal, oropharynx normal Respiratory: normal respiratory effort, lungs clear to auscultation Cardiovascular: RRR, no murmur, no edema Heart Sounds: normal S1 and normal S2 Vessels: posterior tibial pulses present and dorsalis pedis pulses present; no JVD Gastrointestinal (Abdomen): normal bowel sounds, soft, nontender, no hepatosplenomegaly Skin: numerous tattoos port right chest clean Psychiatric: A+Ox3, euthymic affect Results & Data Laboratory Results Laboratory Results - last 24 hr 11/08/18 11/09/18 11/10/18 08:44 Unknown 05:20 WBC 0.56 L* RBC 2.18 L Hgb 6.2 L* Hct 17.5 L* MCV 80.3 MCH 28.4 MCHC 35.4 RDW Std Deviation 38.9 RDW Coeff of Olu 13.3 Plt Count 12 L* MPV 9.8 Neutrophils % (Manual) 10.6 Lymphocytes % (Manual) 81.8 Monocytes % (Manual) 3.1 Eosinophils % (Manual) 2.7 Blast Cells % (Manual) 1.8 Neutrophils # (Manual) 0.06 L Total Absolute Neuts 0.06 L* Lymphocytes # (Manual) 0.46 L Total Abs Lymphocytes 0.46 L Monocytes # (Manual) 0.02 L Eosinophils # (Manual) 0.02 Blast Cells # (Man) 0.01 H Toxic Granulation 1+ Sodium Potassium Chloride Carbon Dioxide Anion Gap BUN Creatinine Est Cr Clr Drug Dosing Est GFR ( Amer) Est GFR (Non-Af Amer) BUN/Creatinine Ratio Glucose Calcium Urine Color Yellow Urine Appearance Clear Urine pH 5.0 Ur Specific [place] 1.012 Urine Protein Negative Urine Glucose (UA) Negative Urine Ketones Negative Urine Blood Negative Urine Nitrite Negative Urine Bilirubin Negative Urine Urobilinogen Negative Ur Leukocyte Esterase Negative Influenza Type A (PCR) Influenza Type B (PCR) Blood Type O Positive Antibody Screen POSITIVE A Antibody Identification Anti-Kpa Crossmatch See Detail 11/10/18 11/10/18 05:20 11:10 WBC RBC Hgb Hct MCV MCH MCHC RDW Std Deviation RDW Coeff of [place]lu Plt Count MPV Neutrophils % (Manual) Lymphocytes % (Manual) Monocytes % (Manual) Eosinophils % (Manual) Blast Cells % (Manual) Neutrophils # (Manual) Total Absolute Neuts Lymphocytes # (Manual) Total Abs Lymphocytes Monocytes # (Manual) Eosinophils # (Manual) Blast Cells # (Man) Toxic Granulation Sodium 136 Potassium 3.8 Chloride 104 Carbon Dioxide 27 Anion Gap 5.0 BUN 22 H Creatinine 0.82 Est Cr Clr Drug Dosing 168.4 Est GFR ( Amer) 119.5 Est GFR (Non-Af Amer) 103.1 BUN/Creatinine Ratio 27.0 H Glucose 98 Calcium 8.2 L Urine Color Urine Appearance Urine pH Ur Specific [place] Urine Protein Urine Glucose (UA) Urine Ketones Urine Blood Urine Nitrite Urine Bilirubin Urine Urobilinogen Ur Leukocyte Esterase Influenza Type A (PCR) Neg for Influ A Influenza Type B (PCR) Neg for Influ B Blood Type Antibody Screen Antibody Identification Crossmatch _ (1) Hypertension Hypertension type: unspecified Qualified Code(s): I10 - Essential (primary) hypertension
[2018-11-11] MEDS: TESTOSTERONE~ORDER AWAITING ACTION SCH ×2 (01:05→09:54)
[2018-11-11] MEDS: SODIUM CHLORIDE 0.9% 1000ML 1,000 ML IV SCH ×2 (02:01→10:04)
[2018-11-11] MEDS: CEFEPIME 1,000 MG in SYRINGE 0 ML IV SCH (05:21)
[2018-11-11 06:17] LABS: Hematocrit (blood only) 18.2 % (42-52); Hemoglobin 6.5 g/dL (14.0-18.0); Mean Corpuscular Hgb Conc 35.7 g/dL (32-36); Mean Corpuscular Volume 80.2 fL (80-100); Mean Platelet Volume 10.1 fL (7.4-10.4); Platelet Count 10 K/uL (130-400); RDW Coefficient of Variation 13.5 % (11.5-14.5); RDW Standard Deviation 39.5 fL (36.4-46.3); Red Blood Count 2.27 M/uL (4.7-6.1); White Blood Count 0.61 K/uL (4.8-10.8)
[2018-11-11 06:30] LABS: Albumin Level 2.5 gm/dl (3.4-5.0); BUN Creatinine Ratio 25.9 (10-20); Calcium 7.9 mg/dl (8.5-10.1); Creatinine Clr Calc Pharmacy 168.4 ml/min; Est GFR (African American) 119.5; Est GFR (Non-African American) 103.1; Potassium 3.9 mmol/L (3.5-5.1)
[2018-11-11 06:33] LABS: Albumin Globulin Ratio 0.6 (0.9-2); Bilirubin,Total 0.4 mg/dl (0.2-1); Globulin 4.3 gm/dl (2.5-4.0); Total Protein 6.8 gm/dl (6.4-8.2)
[2018-11-11 06:43] LABS: RBC Morphology Unremarkable
[2018-11-11 06:45] LABS: ALC (manual) 0.49 K/uL (1.2-3.4); Blast # (manual) 0.02 K/uL (0-0); Blast Cells % (manual) 2.7 %; Eosinophils # (manual) 0.01 K/uL (0-0.5); Lymphocytes # (manual) 0.49 K/uL (1.2-3.4); Lymphocytes % (manual) 79.6 %; Monocytes # (manual) 0.02 K/uL (0.11-0.59); Monocytes % (manual) 3.5 %; Neutrophils % (manual) 13.3 %
[2018-11-11 08:55] LABS: Folate (Folic Acid) 7.31 ng/ml (>5.38)
--- NOTE | 2018-11-11 08:58 | Progress Note ---
DATE: 11/11/2018 HEMATOLOGY PROGRESS NOTE DIAGNOSES: 1. Neutropenic fever. 2. High-grade myelodysplasia. 3. Nausea. SUBJECTIVE: Luis A was seen and examined at bedside. Nursing reports Luis A became verbally abusive towards the gravure press set up operator and one of the nighttime nurses. Counseled him on appropriate behavior and asked him to refrain from verbally abusing medical staff. He seemed to be somewhat contrite. Clinically, he seems to be doing well. Discussed his case with Dr. Delgado, his managing hospitalist. He collectively agreed that Luis A would be discharged if cultures are negative this morning. He is scheduled for followup at [facility] on Wednesday. PHYSICAL EXAMINATION: GENERAL: A 48-year-old gentleman, in no acute distress. VITAL SIGNS: Temperature 36.7, pulse 90, respiratory rate 16, blood pressure 136/75. SKIN: Without rash or lesion. HEENT: No evidence of thrush. NECK: Supple. Trachea midline. HEART: Regular rate and rhythm. LUNGS: Clear to auscultation. ABDOMEN: Soft, nontender, nondistended. EXTREMITIES: No clubbing, cyanosis or edema. LABORATORY DATA: WBC count 610, hemoglobin 6.5, platelet count 10,000. Sodium 140, potassium 3.9, chloride 107, carbon dioxide 27, creatinine 0.82, BUN 21. IMPRESSION: 1. Neutropenic fever. 2. High-grade myelodysplasia. 3. Nausea. 4. Hypoalbuminemia. PLAN: Luis A seems to be holding his own today. Nursing reports no dramatic spike in fever overnight. His nausea has for the most part abated. I spoke to Dr. Delgado by phone yesterday collectively agreeing if his cultures are indeed negative, he is much safer being at home with the chronic neutropenic state. He is scheduled to begin Dacogen on Wednesday. Perhaps provide him with platelets before discharge, but otherwise will resume outpatient transfusional supportive care. Appreciates his help and assisting me in the care of this gentleman.
[2018-11-11] MEDS ORDERED: CYANOCOBALAMIN 500 MCG TABLET (VITAMIN B-12) PO SCH (09:30)
[2018-11-11] MEDS: ACETAMINOPHEN 325 MG TAB PO PRN (09:49)
[2018-11-11] MEDS: ACYCLOVIR 400 MG TAB PO SCH (09:55)
[2018-11-11] MEDS: ALLOPURINOL 300 MG TAB PO SCH (09:55)
[2018-11-11] MEDS: GABAPENTIN 100 MG CAP PO SCH ×2 (09:56→13:10)
[2018-11-11] MEDS: SENNA 8.6 MG TAB PO PRN (09:56)
--- NOTE | 2018-11-11 12:58 | XRay Report ---
XR chest 2V routine CLINICAL HISTORY: neutropenic fever; eval for any pneumonia COMPARISON STUDY: No previous studies for comparison. FINDINGS: The heart is the upper limits of normal in size. There is a right-sided A-Port catheter. Th ere is no failure. There is no focal pulmonary consolidation. There are no pleural effusions. Bilater al linear opacities are consistent with subsegmental atelectasis.[ IMPRESSION: No active disease in the chest. Electronically signed by: Sigifredo Estrada M.D. 11/11/2018 12:57 PM
--- NOTE | 2018-11-19 15:23 | Discharge Summary ---
Date of Service date of admission - 11/09/2018 date of discharge - 11/11/2018 Admission HPI Per Admitting Provider 48 yo male with history of MDS. Initially responded well to treatment under the care of Dr. Chávez. However, after about one year he became refractory to treatment. He developed severe pancytopenia and has relied upon transfusions of platelets and hemoblogin. It quickly became apparent that a bone marrow transplant would be his only hope of cure. He was referred to [facility] to begin the search. It turned out that the patient's sister was perfect match. Initially scheduled to go to [place] this week with sister but delayed due to weather. Yesterday on routine lab work he was severely anemic so Dr. Chávez arranged for transfusion of two units of PRBC today. Last night the patient developed fever, rigors, chills, and then significant diaphoresis. He has experienced this before with neutropenic fevers. He denied having any specific symptoms to suggest infection. No cough, no abdominal pain, no dysuria , no altered mental status. Discussed with Dr. Chávez, recommends admission for blood transfusion and treatment for neutropenic fever. Principal Diagnosis neutropenic fever - septicemia resolved Discharge Exam Constitutional + morbidly obese; no acute distress and not ill appearing ENMT external ear and nose normal, oropharynx normal (no thrush or mucositis ) Respiratory normal respiratory effort, lungs clear to auscultation Cardiovascular RRR, no murmur, no edema Heart Sounds: normal S1 and normal S2 Vessels: posterior tibial pulses present and dorsalis pedis pulses present; no JVD Extremities: + edema (2+ b/l to just below the knees ) Gastrointestinal (Abdomen) normal bowel sounds, soft, nontender, no hepatosplenomegaly Skin no rashes port, chest - clean/no erythema/no induration Psychiatric A+Ox3, euthymic affect Lymphatic no cervical lymphadenopathy Discharge Data Allergies Allergy/AdvReac Type Severity Reaction Status Date / Time aspirin Allergy Severe ANAPHYLAXIS Verified 11/09/18 08:08 ibuprofen Allergy Severe Anaphylaxis Verified 11/09/18 08:08 Penicillins Allergy Intermediate HIVES Verified 11/09/18 08:08 cabbage Allergy Unknown "THROAT Verified 11/09/18 08:08 CLOSES" hydrocodone Allergy Unknown ITCH Verified 11/09/18 08:08 naproxen AdvReac Severe renal Verified 11/09/18 08:08 failure cyclobenzaprine AdvReac Unknown DIARRHEA Verified 11/09/18 08:08 Consultations hematology/oncology - Dr. Edgar Chávez Procedures Performed 1. PRBCs x 4 units 2. 1 unit of apheresed platelets Hospital Course (1) Neutropenic fever: Blood and urine cultures were negative. Flu PCR was negative. Chest x-ray did not show any pneumonia. His port on physical exam was normal. He had no obvious source of infection on physical exam or by way of history. He received broad-spectrum IV antibiotics during his 48 hour stay. Once blood cultures were negative x 48 hours the antibiotics were discontinued. ANC on day of discharge was 80. At discharge he was advised to continue his acyclovir prophylaxis and to follow- up with Dr. Chávez for his severe pancytopenia. He was also advised to monitor for any new infectious symptoms that would suggest a source for his neutropenic fever. (2) MDS (myelodysplastic syndrome): Severe. Awaiting opinion at [facility] about bone marrow transplant. Supportive care including transfusional support was given while hospitalized. He was s/p 4 units PRBCs this admission along with 1 unit of apheresed platelets. He was seen in consult by Dr. Chávez and the patient will have close outpatient follow-up with him. (3) Pancytopenia: 2nd to MDS To be complete some nutritional labs were obtained. Folate level was normal. His B12 level was 261. He will supplement with vitamin B12 1000mcg daily for 1 year. He will need a repeat level in the next few months to ensure the level is improving. Discharge hemoglobin was 6.5. Discharge platelet count was 10 (this was prior to him receiving the platelet infusion). (4) Morbid obesity: BMI 50 (5) Hypertension: BPs acceptable during the stay. (6) Abnormal LFTs: HepC antibody was negative. Fatty liver? other? He will need repeat LFTs as an outpatient to ensure stability. (7) RENE (obstructive sleep apnea): He will continue CPAP. (8) Port-A-Cath in place: At the patient's request an access needle was left in place in his port at time of discharge since he would be having follow-up with Dr. Chávez within 48 hours of discharge. Total Time Total Time Spent Total Time Spent (In Minutes): >30 Total Time Includes: Examination of the Patient, Discharge Planning, Medication Reconciliation and Communication With Other Providers Discharge Plan Discharge Items Patient Disposition: Home - Self-Care Reason For Visit: Neutropenic fever; severe anemia Discharge Diagnosis: Neutropenic fever - no infectious process found. Severe anemia - 4 units of blood given. Severely low platelets - 1 unit of platelets given. Discharge Goals: Diagnostic testing and Therapeutic intervention Activity: As commented below Activity Comment: due to your neutropenia please avoid frequent trips out of your home Non-emergency contact: Oncologist Call non-emergency contact if: you have any medication questions, your symptoms worsen and your temperature is above 100.5 Follow-up/Referrals: Shruti Hackett PA-C [Primary Care Provider] - 11/15/18 9:30 am (Please, follow up with Shruti Hackett PA-C on WednesdayNovember 15 at 9: 30 am. *If you need to change this appointment, call the office at [phone].) Edgar Chávez DO [Physician] - 11/14/18 8:00 am (Please, follow up at [facility] with Dr. Chávez on WednesdayNovember 14 at 8:00 am. *If you have any questions, call the office at [phone].) Diet: Regular Addtl Provider Instructions: From Vu Delgado - hospitalist - You were admitted for neutropenic fever, severe anemia, and very low platelets. We did not find an infectious cause of your fever - that is, we did not find a blood stream infection, influenza, pneumonia, urinary infection, etc. We have stopped IV antibiotics since all of your cultures have been negative. You received 4 units of blood and 1 unit of platelets. We also found low vitamin B12 with a level of about 260 (should be about 400-500 ). At this time please resume all of your normal medications. Please also purchase [id number] vitamin B12 1000mcg once daily. Take this every day for about 1 year. Please continue to monitor your temperatures at home. If you have fever consistently over 100.[address] Chávez's office right away. Follow-up with Dr. Chávez on 11/14/2018, as scheduled. Try to avoid frequent trips out of your home while you are neutropenic. If you have to leave your home for whatever reason please wear a mask to reduce your chances of being exposed to different viruses, bacteria, etc. Avoid people who are sick also to reduce your chances of getting sick. Return to [facility] if - * you have persistent fevers over 100.4 degrees * you have severe headaches * you have significant cough or shortness of breath * nausea, vomiting, diarrhea * painful urination * severe body aches * any other concerns Prescriptions: New cyanocobalamin (vitamin B-12) [Vitamin B-12] 500 mcg Tablet 1,000 mcg PO QAM Qty: 30 RF: 11 Continue acyclovir 400 mg Tablet 400 mg PO BID Qty: 0 RF: 3 testosterone 1 % (50 mg/5 gram) Gel In Packet 1 packet TRANSDERMAL DAILY Qty: 0 RF: 0 sennosides [senna] 8.6 mg Tablet 8.6 mg PO BID PRN (Reason: constipation) RF: 0 allopurinol 300 mg Tablet 300 mg PO DAILY RF: 0 acetaminophen [Tylenol Extra Strength] 500 mg Tablet 500 mg PO QID PRN (Reason: Pain) RF: 0 gabapentin [Neurontin] 100 mg Capsule 100 mg PO TID RF: 0 tramadol 50 mg Tablet 50 mg PO Q4H PRN (Reason: Pain) RF: 0 Stand-Alone Forms: [facility] Discharge Orders: Discharge Order (Routine); Ordered 11/11/18 Ordered By: Vu Delgado Admission Data Admit Date/Time: 11/09/18 11:18 Attending Provider: Vu Delgado Admit Provider: Dev Garcia Primary Care Provider: Shruti Hackett Other Providers: Edgar Chávez V Service: Oncology Other Interventions: Discharge Summary Assessment (RN) Last Done: 11/11/18 13:45 Pending Studies at Discharge: Yes Studies:: blood cultures DC Date/Time DO NOT enter until pt leaves facility: 11/11/18 16:00
== END 2018-11-11 16:00 | disposition home or self-care (01) ==
LOC: SUATTDRO 11:18 → 4E 11:18

== ENCOUNTER 2018-11-22 18:09 | Inpatient (IN) ==
--- NOTE | 2018-11-22 20:40 | History & Physical Report ---
Date of Service November 22, 2018 Assessment & Plan (1) Neutropenic fever: Patient febrile, tachycardic, WBC=0.4, differential not able to be obtained. Does not appear toxic or septic at present. Ddx to include bacteremia, UTI, also concerning for possible perirectal or gluteal abscess given tender lesions on buttock. Physical exam otherwise unrevealing for obvious source of infection. -Full fever workup to include blood cultures, UA and culture, CXR -Obtain MRI pelvis to assess buttock lesions as possible source of neutropenia -Neutropenic precautions -Empiric antibiotics with Vancomycin and Cefepime -NSS at 125mL/hr x 2 liters -Hematology consultation - appreciate assistance (2) MDS (myelodysplastic syndrome): Complicated MDS, 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 Patient follows with Dr. Chávez. -Obtain CBC now and daily -Transfuse platelets x 1 unit -Monitor H/H and transfuse if values decrease, active bleed or symptomatic anemia -Hematology consultation - appreciate assistance with this case (3) Pancytopenia: As above. Patient is to go to [facility] for possible bone marrow transplant - his sister is a match. To be pursued on discharge when acute issues resolve -CBC daily -Continue B12 supplementation (4) Hypertension: Blood pressure stable at present -Continue to monitor (5) Abnormal LFTs: Noted. No GI complaints. HCV antibody negative during previous stay. -To be monitored as outpatient F/E/N - NSS at 125mL/hr x 2 L, monitor electrolytes and replete as needed, heart healthy diet as tolerated Ppx - SCDs to bilateral LE Code - Full per discussion with patient Dispo - Admit to PCU History of Present Illness Chief Complaint: Fever Primary Care Provider: Shruti Hackett PA-C Mr. Palacios is a 48yo male with complex medical history to include transfusion dependent MDS with pancytopenia, HTN, morbid obesity and RENE. He was recently admitted to [facility] from 11/09/17 - 11/11/18 for neutropenic fever and transfusion of blood products. During that hospital stay his infectious workup to include blood and urine cultures and CXR were negative. No obvious source of infection was identified. He was treated with empiric Cefepime x 2 days, transfused 4 units PRBCs (Hg 4.4 on arrival, 6.5 on discharge) and 1 unit of platelets ( Platelets 15 on arrival and 10 on DC which was prior to transfusion, ANC=80). He was discharged home in stable condition. Patient presented to [facility] today with complaint of BRBPR after bowel movements that has been occurring over the last week. He reports being constipated and straining to have a bowel movement. He has known hemorrhoids. He had anoscopy performed on Wednesday which confirmed the presence of hemorrhoids - patient states that the hemorrhoids were "outies" but they were reduced to become "innies". Patient also reports decreased energy and fatigue as well as fevers/chills/sweats and body aches at home as well as occasional dizziness. He has two lesions on the left gluteus that are tender and swollen and have been leaking a "black fluid". OSH Course: Tylenol, 1L NSS. Labs obtained at [place] revealed pancytopenia. Patient requested to be transferred to [facility] as he receives his Hematology care here. Allergies Allergy/AdvReac Type Severity Reaction Status Date / Time aspirin Allergy Severe ANAPHYLAXIS Verified 11/09/18 08:08 ibuprofen Allergy Severe Anaphylaxis Verified 11/09/18 08:08 Penicillins Allergy Intermediate HIVES Verified 11/09/18 08:08 cabbage Allergy Unknown "THROAT Verified 11/09/18 08:08 CLOSES" hydrocodone Allergy Unknown ITCH Verified 11/09/18 08:08 naproxen AdvReac Severe renal Verified 11/09/18 08:08 failure cyclobenzaprine AdvReac Unknown DIARRHEA Verified 11/09/18 08:08 Home Medications Home Medications Medication Instructions Recorded Confirmed Type acyclovir 800 mg PO BID #0 06/28/17 11/22/18 History sennosides [senna] 8.6 mg PO BID 07/22/18 11/09/18 History acetaminophen [Tylenol Extra 500 mg PO Q8 PRN 09/09/18 11/09/18 History Strength] gabapentin [Neurontin] 200 mg PO TID 09/29/18 11/22/18 History cyanocobalamin (vitamin B-12) 1,000 mcg PO QAM #30 tab 11/11/18 Rx [Vitamin B-12] Past Med/Surg History Medical History History of tooth extraction (Acute) Hypertension (Acute) Klinefelter syndrome (Acute) Myelofibrosis (Acute) Cancer (Acute) MDS Hemorrhoid Obesity Obstructive sleep apnea on CPAP Pancytopenia Rectal bleed Surgical History History of vascular access device (Acute) History of heart valve replacement S/P hip replacement Family History Other No significant family history Social History Current Living Situation: Other Current Living Situation Comment: Girlfriend Other Information That Helps Us Care for You: No Feels Safe at Home: Yes Safety Concerns: Feels Safe At This Time Smoking Status: Unknown if ever smoked Hx Alcohol Use: No Hx Substance Use: No Beliefs That Will Affect Care: Oriental Orthodox Oriental Orthodox Beliefs: Protestant Preferred Language: Citizen Of [place] Communication Ability: Effective Salesperson Burial Plots Required: No Review of Systems All systems reviewed & are unremarkable except as noted in HPI & below Physical Exam 2 Physical Exam: General: morbidly obese male, resting comfortably, NAD, non- toxic in appearance, AA&O x 4 Skin: warm, dry, two dime sized lesions on left side of gluteal cleft, tender, mildly fluctuant, +petechiae on bilateral ankles HEENT: NC/AT, PERRL, EOMI, anicteric sclera, conjunctiva without injection, external ear normal to inspection and nontender, nares patent, moist mucus membranes, dentition intact, no oropharyngeal lesions, neck supple, trachea midline, no LAD, no thyromegaly, no JVD Heart: +S1/S2, regular, no m/r/g Lungs: equal air entry bilaterally, no rales/rhonchi/wheezes Abd: +BS, soft, NT/ND, no masses/organomegaly/ascites Ext: warm, 2+ pulses in UE/LE bilaterally, no clubbing/cyanosis or edema, hemosiderin staining on bilateral LE Neuro: nonfocal, patient AA&O x 4, speech intact, no facial droop, moving all extremities on command with equal strength 5/5, pain with movement of LLE Results & Data Laboratory Results LABORATORY RESULTS FROM OSH: WBC=0.39 Hg=7 Hct=19.1 Plt=<3 Na=`40 K=3.7 Si=732 CO2=27 BUN=23 Cr=0.9 Ca=8.9 Trop <[address] Abdomen and Pelvis with IV contrast at OSH: -No acute findings -Unremarkable appendix -Cholelithiasis XR chest 1V portable CLINICAL HISTORY: fever COMPARISON STUDY: 11/11/2018 FINDINGS: Stable right-sided catheter within the superior vena cava. Diaphragms smooth. Lungs are clear. IMPRESSION: No acute process. No change from the prior exam. The above report was generated using voice recognition software. It may contain grammatical, syntax or spelling errors. Electronically signed by: Jose Antonio Lopez M.D. 11/22/2018 9:37 PM Code Status & VTE Plan Code Status FULL VTE Prophylaxis Plan VTE Prophylaxis will be ordered: Yes Critical Care Time Critical Care Time: No _ (1) Hypertension Hypertension type: unspecified Qualified Code(s): I10 - Essential (primary) hypertension
[2018-11-22] MEDS ORDERED: ACYCLOVIR 400 MG TAB PO ONE (21:30)
[2018-11-22 21:31] LABS: INR 1.1 (0.9-1.1); Prothrombin Time 11.5 Seconds (9.0-12.0)
[2018-11-22 21:37] LABS: Albumin Level 3.2 gm/dl (3.4-5.0); BUN Creatinine Ratio 28.3 (10-20); Bilirubin Direct 0.1 mg/dl (0-0.2); Calcium 8.2 mg/dl (8.5-10.1); Creatinine Clr Calc Pharmacy 166.8 ml/min; Est GFR (African American) 120.7; Est GFR (Non-African American) 104.2; Magnesium 2.2 mg/dl (1.8-2.4); Potassium 3.9 mmol/L (3.5-5.1)
--- NOTE | 2018-11-22 21:38 | XRay Report ---
XR chest 1V portable CLINICAL HISTORY: fever COMPARISON STUDY: 11/11/2018 FINDINGS: Stable right-sided catheter within the superior vena cava. Diaphragms smooth. Lungs are kenna ar. IMPRESSION: No acute process. No change from the prior exam. The above report was generated using voice recognition software. It may contain grammatical, syntax or spelling errors. Electronically signed by: Jose Antonio Lopez M.D. 11/22/2018 9:37 PM
[2018-11-22 21:40] LABS: Bilirubin,Total 0.4 mg/dl (0.2-1); Phosphorus 3.9 mg/dl (2.5-4.9); Total Protein 8.4 gm/dl (6.4-8.2)
[2018-11-22 21:52] LABS: Hematocrit (blood only) 19.5 % (42-52); Hemoglobin 7.1 g/dL (14.0-18.0); Mean Corpuscular Hgb Conc 36.4 g/dL (32-36); Mean Corpuscular Volume 79.3 fL (80-100); Platelet Count 2 K/uL (130-400); RDW Coefficient of Variation 12.9 % (11.5-14.5); RDW Standard Deviation 38.3 fL (36.4-46.3); Red Blood Count 2.46 M/uL (4.7-6.1)
[2018-11-22 22:01] LABS: Appearance Urine Clear (Clear); Bilirubin Urine Negative (Negative); Color Urine Yellow; Glucose Urine UA Negative (Negative); Ketones Urine Negative (Negative); Leukocyte Esterase Urine Negative (Negative); Nitrite Urine Negative (Negative); Protein Urine Negative (Negative); Specific Gravity Urine 1.042 (1.000-1.030); Urobilinogen Urine Negative (Negative)
[2018-11-22] MEDS ORDERED: VANCOMYCIN CONSULT ACTIVE PRN (22:19)
[2018-11-22] MEDS ORDERED: VANCOMYCIN HCL 2,750 MG in SODIUM CHLORIDE 0.9% 500 ML IV ONE (22:45)
[2018-11-23] MEDS: ACETAMINOPHEN 325 MG TAB PO PRN ×3 (00:50→16:01)
[2018-11-23] MEDS: SODIUM CHLORIDE 0.9% 1000ML 1,000 ML IV SCH ×2 (00:51→08:05)
[2018-11-23] MEDS: CEFEPIME 2,000 MG in SYRINGE 7.5 ML IV SCH ×4 (00:53→23:52)
--- NOTE | 2018-11-23 07:21 | Magnetic Resonance Report ---
MR pelvis wo con CLINICAL HISTORY: Neutropenic fever. Suspected perirectal abscess. COMPARISON STUDY: No previous studies for comparison. FINDINGS: Imaging was performed in the axial and coronal planes. There is artifact from a total left hip arthroplasty. There is no pathologic marrow edema. There is no pathologic adenopathy. No abnormal pelvic masses are visualized. There is a fat-containing umbilical hernia. There is small fat-containing inguinal hernias. There are no fluid collections to indicate an abscess. There are perianal inflammatory changes with a suspected sinus tract extending to the right gluteal f old. There is also equivocal sinus tract to the presacral region. There is right gluteal fold inflamm atory change. IMPRESSION: 1. Right gluteal fold and perianal inflammatory changes. 2. Probable sinus tracts extending to the presacral region and right gluteal fold 3. No evidence of focal abscess 4. This report will be called to the floor as the interpretation represents a discrepancy with the pr ior preliminary report Electronically signed by: Sigifredo Estrada M.D. 11/23/2018 7:20 AM
--- NOTE | 2018-11-23 08:44 | Pharmacy Report ---
Pharmacy Abx Initial Consult - Date of Service November 23, 2018 - Pharmacy Dosing Scope Date of Consult: 11/22 PM Consultation requested by: Dr. Saundra Bautista Pharmacy is consulted to initiate vancomycin IV dosing therapy, order appropriate labs and adjust drug dose/frequency. - Subjective The patient is a 48 year old M admitted on 11/22/18 20:15. - Objective Height: 5 ft 11 in Weight: 155.3 kg Vital Signs (Past 12hrs): Vital Signs Temp Pulse Pulse Pulse Pulse Resp BP 11/23/18 07:37 37.4 C 96 H 20 11/23/18 07:30 37.4 C 103 H 18 123/68 11/23/18 06:30 37.6 C H 94 H 16 109/66 11/23/18 05:30 37.4 C 105 H 18 125/74 11/23/18 05:00 37.4 C 84 18 134/81 11/23/18 04:45 37.0 C 90 20 132/81 11/23/18 04:25 37.4 C 92 H 20 106/74 11/23/18 04:05 37.1 C 101 H 18 11/23/18 02:15 38.2 C H 11/23/18 02:01 38.5 C H 11/23/18 00:46 39.2 C H 105 H 24 11/22/18 23:15 39.3 C H 120 H 16 11/22/18 20:53 38 C H 114 H 20 11/22/18 20:43 BP BP Pulse Ox Pulse Ox 11/23/18 07:37 123/73 95 11/23/18 07:30 96 11/23/18 06:30 93 11/23/18 05:30 11/23/18 05:00 97 11/23/18 04:45 99 11/23/18 04:25 97 11/23/18 04:05 116/59 L 95 11/23/18 02:15 11/23/18 02:01 11/23/18 00:46 117/75 96 11/22/18 23:15 149/84 H 98 11/22/18 20:53 139/90 98 11/22/18 20:43 94 Lab Results (24hrs): Laboratory Tests (24 Hours) 11/22/18 11/22/18 21:00 21:00 WBC 0.40 L* Neut # (Auto) Cancelled Creatinine 0.80 Est Cr Clr Drug Dosing 166.8 Micro Results: 11/22/18 21:00 Blood Culture - Pending Blood - Risk Factors for Resistance * Immunocompromised (myelodysplastic syndrome) - Assessment & Plan Assessment 48 year old M admitted 2/12 PM for neutropenic fever, WBC = 0.4. Possible sources of infection include UTI, perirectal/gluteal abscess or bacteremia. Vancomycin and cefepime have been initiated as empiric therapy, with current duration of 48 hrs. Plan Vancomycin IV * Estimated PK Parameters: Vd 0.54 L/kg (due to BMI > 40), Colt 0.087 hr-1, t1/2 7.9 hr * Loading dose: 2750 mg (18 mg/kg) - given in the ED * Maintenance dose: 1750 mg IV (11.3 mg/kg) every 8 hours - start now as level anticipated to be in therapeutic range to re-dose * Goal trough level : 15 to 20 mcg/mL * No trough level ordered at this time since duration is 48 hours; however, will need to be cautious in elevated BMI and prone to accumulation. If anticipated duration will be > 48 hours, will plan to order a trough level tomorrow * A less than traditional dose has been selected due to likelihood of drug accumulation in obese patient Cefepime * Not dosed by pharmacy but is appropriately dosed at this time Pharmacy will continue to follow and will adjust dose/frequency as necessary. Thank you.
[2018-11-23 09:04] LABS: Hematocrit (blood only) 17.1 % (42-52); Hemoglobin 6.2 g/dL (14.0-18.0); Mean Corpuscular Hgb Conc 36.3 g/dL (32-36); Mean Corpuscular Volume 79.5 fL (80-100); Mean Platelet Volume 7.7 fL (7.4-10.4); Platelet Count 13 K/uL (130-400); RDW Coefficient of Variation 12.9 % (11.5-14.5); RDW Standard Deviation 37.9 fL (36.4-46.3); Red Blood Count 2.15 M/uL (4.7-6.1); White Blood Count 0.37 K/uL (4.8-10.8)
[2018-11-23 09:13] LABS: BUN Creatinine Ratio 22.7 (10-20); Calcium 8.4 mg/dl (8.5-10.1); Creatinine Clr Calc Pharmacy 147.4 ml/min; Est GFR (African American) 113.5; Est GFR (Non-African American) 97.9; Potassium 3.5 mmol/L (3.5-5.1)
[2018-11-23] MEDS ORDERED: SODIUM CHLORIDE 0.9% 500 ML IV PRN (09:15)
[2018-11-23 09:16] LABS: Albumin Globulin Ratio 0.6 (0.9-2); Bilirubin,Total 0.7 mg/dl (0.2-1)
[2018-11-23] MEDS: DOCUSATE SODIUM/SENNA 50/8.6MG TAB PO PRN (09:21)
[2018-11-23] MEDS: GABAPENTIN 100 MG CAP PO SCH ×3 (09:21→22:13)
[2018-11-23] MEDS: ALLOPURINOL 300 MG TAB PO SCH (09:22)
[2018-11-23] MEDS: CYANOCOBALAMIN 500 MCG TABLET (VITAMIN B-12) PO SCH (09:22)
[2018-11-23] MEDS: ACYCLOVIR 400 MG TAB PO SCH ×2 (09:22→22:14)
[2018-11-23] MEDS: VANCOMYCIN HCL 1,750 MG in SODIUM CHLORIDE 0.9% 500 ML IV SCH ×2 (09:23→22:10)
--- NOTE | 2018-11-23 09:59 | Consultation Report ---
DATE OF CONSULTATION: 11/23/2018 REASON FOR CONSULTATION: A 48-year-old gentleman with high risk myelodysplasia admitted for neutropenic fever. HISTORY OF PRESENT ILLNESS: Mr. Palacios is a 48-year-old gentleman well known to [facility] with high grade myelodysplasia manifested by persistent pancytopenia. He was recently admitted to [facility] from 11/09/2018 through 11/11/2018 with a neutropenic fever and transfusion of blood products. He was pancultured and underwent chest x-ray, all of which were negative. Once he receives his blood products, his fever seem to ras and was sent home on prophylactic antimicrobials. Over the past week or so, he has been experiencing bright red rectal bleeding after bowel movements. Luis A reports constipation and straining and has a history of hemorrhoids. Apparently, he had an anoscopy performed on Wednesday confirming the presence of external hemorrhoids. Patient had also reported decreased energy and fatigue as well as fevers, chills, and sweats. Additionally, apparently there are cutaneous lesions involving his left gluteus, super tender and swollen and Luis A describes leaking black fluid. I believe a general surgery is on consult to evaluate these lesions and perhaps incise and drain them. Long-term, I have been trying to get Mr. Palacios to allogeneic peripheral stem cell transplant through Dr. Marcello Juarez, general assistant in [facility]. Apparently, he does have a sibling donor and testing is underway. Mr. Palacios received 5-azacitidine for about 13 months with near normalization of his counts. He had been transfusion independent. However, about 4 months ago, he once again became transfusion dependent and now recently started Dacogen on day 1 through [address] Juarez is also considering the addition of venetoclax. He on an average receives transfused products every week. Luis A apparently received platelets this morning at bedside. PAST MEDICAL HISTORY: Again, positive for high-grade myelodysplasia, Klinefelter syndrome, hypertension, morbid obesity, hemorrhoids, obstructive sleep apnea, and rectal bleeding. PAST SURGICAL HISTORY: Status post MediPort placement, heart valve replacement, status post hip replacement. MEDICATIONS: Currently on acyclovir 800 mg p.o. b.i.d., senna 8.6 mg p.o. b.i.d., extra strength Tylenol p.r.n., gabapentin 200 mg p.o. b.i.d., and vitamin B12 1000 mcg p.o. q.a.m. ALLERGIES: ASPIRIN, IBUPROFEN, PENICILLIN, CABBAGE, HYDROCODONE, NAPROSYN, CYCLOBENZAPRINE. SOCIAL HISTORY: The patient is single, has a significant other. He is a nonsmoker, nondrinker, non-illicit drug user. FAMILY HISTORY: Noncontributory. REVIEW OF SYSTEMS: Most notable for low grade fever, no chills or rigors. He is not anorexic or losing weight. His appetite remains robust. SKIN: No rashes and no history of dermatoses. He has a couple of cutaneous lesions involving his left buttock. HEENT: Negative for headaches, lightheadedness, or dizziness. Presently he wears corrective lenses. No sinus symptoms, sore throat, or dysphasia. LYMPH: No history of lymphoproliferative disease. CARDIAC: No history of coronary artery disease. PULMONARY: No history of pulmonary disease. He is not short of breath, dyspneic, or orthopneic. GASTROINTESTINAL: Negative for abdominal pain. Positive for bright red rectal hemorrhoid bleeding. GENITOURINARY: No hematuria, dysuria, urinary incontinence. RHEUMATOLOGIC: Positive history of osteoarthritis. No generalized muscle weakness. ENDOCRINE: Negative for diabetes or thyroid disease. NEUROLOGIC: Negative for seizure, stroke, or migraine headache. HEMATOLOGIC: As per HPI. PHYSICAL EXAMINATION: GENERAL: Very pleasant 48-year-old morbidly obese gentleman in no acute distress. VITAL SIGNS: Temperature 37.4, pulse 96, respiratory rate 20, blood pressure 123/73. SKIN: Warm, dry, noncyanotic without petechial rash, or ecchymosis. HEENT: Atraumatic, normocephalic. EYES: PERRLA, EOMI. Sclerae nonicteric. Nares patent without rhinorrhea or discharge. Throat is clear. Tongue midline. No evidence of thrush. NECK: Supple. HEART: Regular rate and rhythm. No clicks, rubs, murmurs, or gallops. LUNGS: Clear to auscultation bilaterally. ABDOMEN: Soft, nontender, nondistended. EXTREMITIES: No clubbing, cyanosis, or edema. NEUROLOGICALLY: He is awake, alert, and oriented x3. Cranial nerves II-XII are intact. No gross motor or sensory deficits are noted. LABORATORY DATA: All pending at the time of dictation. IMPRESSION: 1. Neutropenic fever. 2. High grade myelodysplasia. 3. Transfusion dependence. 4. Hypertension. 5. Obstructive sleep apnea. 6. Left buttock cutaneous ulcers. PLAN: I have been asked to look in on Mr. Palacios. He is a very pleasant complex 48-year-old gentleman with longstanding history of myelodysplasia. He was recently started on Dacogen at the request of Dr. Marcello Juarez and is recommending the addition of Venclexta, when the drug becomes available. This is now Mr. Palacios's second admission in the last couple of weeks. I agree the lesions on his buttock need to be addressed. The most pressing issue is proceeding to transplant, as allogeneic peripheral blood stem cell transplant is the only curative option for Mr. Palacios. He continues to be profoundly transfusion dependent and the persistent neutropenia is posing long-term risk. Generally speaking, the patient's with myelodysplasia either from spontaneous hemorrhage or infectious complications. I agree with current management covering him with the prophylactic anti microbials and address any new issues that arise with the lesions on his buttock. Continue transfusional support for hemoglobin less than 7.5 g per deciliter and platelets less than 15,000. He will resume Dacogen upon discharge. Hopefully, we can get him to transplant before he succumbs from complications of his hematologic disease. LADONNA
[2018-11-23] MEDS: metroNIDAZOLE 500 MG/100 ML BAG IV SCH ×2 (10:14→22:11)
[2018-11-23] MEDS ORDERED: ACETAMINOPHEN 325 MG TAB PO STA (11:25)
--- NOTE | 2018-11-23 11:28 | Surgery Consultation ---
Date of Consultation November 23, 2018 Assessment & Plan (1) Cellulitis of buttock, right: Two superficial wounds of the right buttock/gluteal fold No evidence of fluctuance to suggest abscess on examination No evidence of abscess/fluid collection on pelvic MRI Plan: No evidence of abscess therefore no need for immediate surgical intervention for I&D. Would continue IV abx, pain management as needed Monitor labs Given severe myelodysplastic syndrome, pancytopenia, and requiring weekly transfusions would defer I&D unless there is evidence of abscess/drainable fluid collection. Will follow and monitor response to abx Dr. Brian has seen and examined pt, agrees with above (2) MDS (myelodysplastic syndrome): History of Present Illness Attending Physician: Shanique Randall MD History of Present Illness Mr. Palacios is a 48 year old male with complex medical history to include transfusion dependent MDS with pancytopenia, HTN, morbid obesity and RENE. He was recently admitted to [facility] from 11/09/17 - 11/11/18 for neutropenic fever and transfusion of blood products. During that hospital stay his infectious workup to include blood and urine cultures and CXR were negative. No obvious source of infection was identified. He presented to [place] emergency room yesterday with complaint of rectal bleeding and hemorrhoids. Patient also has two wounds on his right buttocks that have been draining a "black liquid". States he has pain at site of the wounds on his right buttocks and it felt hard to touch. He was transferred here to [facility] given his pancytopenia and receives his hematology care here. MRI of the pelvis IMPRESSION: 1. Right gluteal fold and perianal inflammatory changes. 2. Probable sinus tracts extending to the presacral region and right gluteal fold 3. No evidence of focal abscess 4. This report will be called to the floor as the interpretation represents a discrepancy with the prior preliminary report He did have fever last night, Tmax of 39.3, requires weekly tranfusions and is getting platelet transfusion and 2 units of PRBCs today per nurse. Allergies Allergy/AdvReac Type Severity Reaction Status Date / Time aspirin Allergy Severe ANAPHYLAXIS Verified 11/09/18 08:08 ibuprofen Allergy Severe Anaphylaxis Verified 11/09/18 08:08 Penicillins Allergy Intermediate HIVES Verified 11/09/18 08:08 cabbage Allergy Unknown "THROAT Verified 11/09/18 08:08 CLOSES" hydrocodone Allergy Unknown ITCH Verified 11/09/18 08:08 naproxen AdvReac Severe renal Verified 11/09/18 08:08 failure cyclobenzaprine AdvReac Unknown DIARRHEA Verified 11/09/18 08:08 Home Medications Home Medications Medication Instructions Recorded Confirmed Type acyclovir 800 mg PO BID #0 06/28/17 11/22/18 History sennosides [senna] 8.6 mg PO BID 07/22/18 11/09/18 History acetaminophen [Tylenol Extra 500 mg PO Q8 PRN 09/09/18 11/09/18 History Strength] gabapentin [Neurontin] 200 mg PO TID 09/29/18 11/22/18 History cyanocobalamin (vitamin B-12) 1,000 mcg PO QAM #30 tab 11/11/18 Rx [Vitamin B-12] Patient History Medical History History of tooth extraction (Acute) Hypertension (Acute) Klinefelter syndrome (Acute) Myelofibrosis (Acute) Cancer (Acute) MDS Hemorrhoid Obesity Obstructive sleep apnea on CPAP Pancytopenia Rectal bleed Surgical History History of vascular access device (Acute) History of heart valve replacement S/P hip replacement Family History Other No significant family history Social History Current Living Situation: Other Current Living Situation Comment: Girlfriend Other Information That Helps Us Care for You: No Feels Safe at Home: Yes Safety Concerns: Feels Safe At This Time Smoking Status: Unknown if ever smoked Hx Alcohol Use: No Hx Substance Use: No Beliefs That Will Affect Care: Latter-Day Latter-Day Beliefs: Jewish Communication Ability: Effective Review of Systems Constitutional: as per Subjective / HPI Physical Exam 2 Vital Signs (Past 24 Hours): Last Vital Signs Temp 37.0 C 11/23/18 11:25 Pulse 99 H 11/23/18 11:25 Resp 18 11/23/18 11:25 BP 145/77 H 11/23/18 11:25 Pulse Ox 96 11/23/18 11:25 Constitutional: WD/WN, vitals as above + morbidly obese; no acute distress Respiratory: no respiratory distress Skin: External rectal exam: No evidence of prolapsed or thrombosed hemorrhoids , no active bleeding Right Buttocks/gluteal fold: Two superficial wounds with necrosis with surrounding induration but no palpable fluctaunce. No active drainage. Tender to touch Psychiatric: A+Ox3, euthymic affect Results & Data Laboratory Results 11/23/18 11/23/18 11/23/18 Range/Units 09:29 08:27 08:27 WBC 0.37 L* (4.8-10.8) K/uL RBC 2.15 L (4.7-6.1) M/uL Hgb 6.2 L* (14.0-18.0) g/dL Hct 17.1 L* (42-52) % MCV 79.5 L (80-100) fL MCH 28.8 (25-34) pg MCHC 36.3 H (32-36) g/dL RDW Std Deviation 37.9 (36.4-46.3) fL RDW Coeff of Olu 12.9 (11.5-14.5) % Plt Count 13 L* D (130-400) K/uL MPV 7.7 (7.4-10.4) fL Immature Gran % (Auto) Cancelled Neut % (Auto) Cancelled Lymph % (Auto) Cancelled [place] % (Auto) Cancelled Eos % (Auto) Cancelled Baso % (Auto) Cancelled Immature Gran # (Auto) Cancelled Neut # (Auto) Cancelled Lymph # (Auto) Cancelled [place] # (Auto) Cancelled Eos # (Auto) Cancelled Baso # (Auto) Cancelled Neutrophils % (Manual) Cancelled Band Neutrophils % Cancelled Lymphocytes % (Manual) Cancelled Prolymphocyte % Cancelled Reactive Lymphs % (Man) Cancelled Monocytes % (Manual) Cancelled Eosinophils % (Manual) Cancelled Basophils % (Manual) Cancelled Metamyelocytes % (Man) Cancelled Myelocytes % (Man) Cancelled Promyelocytes % (Man) Cancelled Blast Cells % (Manual) Cancelled Plasma Cell % (Manual) Cancelled Other Cells % Cancelled Nucleated RBC % Cancelled Neutrophils # (Manual) Cancelled Band Neutrophils # Cancelled Total Absolute Neuts Cancelled Lymphocytes # (Manual) Cancelled Prolymphocyte # Cancelled Reactive Lymphs # Cancelled Total Abs Lymphocytes Cancelled Monocytes # (Manual) Cancelled Eosinophils # (Manual) Cancelled Basophils # (Manual) Cancelled Metamyelocytes # (Man) Cancelled Myelocytes # (Manual) Cancelled Promyelocytes # (Man) Cancelled Blast Cells # (Man) Cancelled Plasma Cell # (Manual) Cancelled Other Cells # Cancelled Nucleated RBCs # (Man) Cancelled Hypersegmented Neuts Cancelled Hyposegmented Neuts Cancelled Hypogranular Neuts Cancelled Large Granular Lymphs Cancelled # Lrg Granular Lymphs Cancelled Hairy Cells Cancelled Smudge Cells Cancelled Toxic Granulation Cancelled Toxic Vacuolation Cancelled Dohle Bodies Cancelled Rox Rods Cancelled Hypogranular Platelets Cancelled Clumped Platelets Cancelled Giant Platelets Cancelled Platelet Satelliting Cancelled RBC Morphology Cancelled Polychromasia Cancelled Hypochromasia Cancelled Poikilocytosis Cancelled Basophilic Stippling Cancelled Anisocytosis Cancelled Microcytosis Cancelled Macrocytosis Cancelled Spherocytes Cancelled Pappenheimer Bodies Cancelled Sickle Cells Cancelled Target Cells Cancelled Tear Drop Cells Cancelled Ovalocytes Cancelled Stomatocytes Cancelled Holland-Porum Bodies Cancelled Echinocytes Cancelled Acanthocytes (Spur) Cancelled Rouleaux Cancelled RBC Agglutinates Cancelled Schistocytes Cancelled RBC Morph Comment Cancelled Sezary Cell Cancelled PT (9.0-12.0) Seconds INR (0.9-1.1) Sodium 137 (136-145) mmol/L Potassium 3.5 (3.5-5.1) mmol/L Chloride 103 (98-107) mmol/L Carbon Dioxide 28 (21-32) mmol/L Anion Gap 6.0 (3-11) BUN 21 H (7-18) mg/dl Creatinine 0.91 (0.6-1.4) mg/dl Est Cr Clr Drug Dosing 147.4 ml/min Est GFR ( Amer) 113.5 Est GFR (Non-Af Amer) 97.9 BUN/Creatinine Ratio 22.7 H (10-20) Glucose 117 H (70-99) mg/dl Calcium 8.4 L (8.5-10.1) mg/dl Phosphorus (2.5-4.9) mg/dl Magnesium (1.8-2.4) mg/dl Total Bilirubin 0.7 (0.2-1) mg/dl Direct Bilirubin (0-0.2) mg/dl AST 32 (15-37) U/L ALT 118 H (12-78) U/L Alkaline Phosphatase 64 (45-117) U/L Total Protein 8.0 (6.4-8.2) gm/dl Albumin 3.0 L (3.4-5.0) gm/dl Globulin 5.0 H (2.5-4.0) gm/dl Albumin/Globulin Ratio 0.6 L (0.9-2) Urine Color Urine Appearance (Clear) Urine pH (4.5-7.5) Ur Specific [place] (1.000-1.030) Urine Protein (Negative) Urine Glucose (UA) (Negative) Urine Ketones (Negative) Urine Blood (Negative) Urine Nitrite (Negative) Urine Bilirubin (Negative) Urine Urobilinogen (Negative) Ur Leukocyte Esterase (Negative) Blood Type O Positive Rho(D) Type Antibody Screen NEGATIVE Crossmatch See Detail 11/22/18 11/22/18 11/22/18 Range/Units 22:19 21:05 21:00 WBC (4.8-10.8) K/uL RBC (4.7-6.1) M/uL Hgb (14.0-18.0) g/dL Hct (42-52) % MCV (80-100) fL MCH (25-34) pg MCHC (32-36) g/dL RDW Std Deviation (36.4-46.3) fL RDW Coeff of Olu (11.5-14.5) % Plt Count (130-400) K/uL MPV (7.4-10.4) fL Immature Gran % (Auto) Neut % (Auto) Lymph % (Auto) [place] % (Auto) Eos % (Auto) Baso % (Auto) Immature Gran # (Auto) Neut # (Auto) Lymph # (Auto) [place] # (Auto) Eos # (Auto) Baso # (Auto) Neutrophils % (Manual) Band Neutrophils % Lymphocytes % (Manual) Prolymphocyte % Reactive Lymphs % (Man) Monocytes % (Manual) Eosinophils % (Manual) Basophils % (Manual) Metamyelocytes % (Man) Myelocytes % (Man) Promyelocytes % (Man) Blast Cells % (Manual) Plasma Cell % (Manual) Other Cells % Nucleated RBC % Neutrophils # (Manual) Band Neutrophils # Total Absolute Neuts Lymphocytes # (Manual) Prolymphocyte # Reactive Lymphs # Total Abs Lymphocytes Monocytes # (Manual) Eosinophils # (Manual) Basophils # (Manual) Metamyelocytes # (Man) Myelocytes # (Manual) Promyelocytes # (Man) Blast Cells # (Man) Plasma Cell # (Manual) Other Cells # Nucleated RBCs # (Man) Hypersegmented Neuts Hyposegmented Neuts Hypogranular Neuts Large Granular Lymphs # Lrg Granular Lymphs Hairy Cells Smudge Cells Toxic Granulation Toxic Vacuolation Dohle Bodies Rox Rods Hypogranular Platelets Clumped Platelets Giant Platelets Platelet Satelliting RBC Morphology Polychromasia Hypochromasia Poikilocytosis Basophilic Stippling Anisocytosis Microcytosis Macrocytosis Spherocytes Pappenheimer Bodies Sickle Cells Target Cells Tear Drop Cells Ovalocytes Stomatocytes [place]-Porum Bodies Echinocytes Acanthocytes (Spur) Rouleaux RBC Agglutinates Schistocytes RBC Morph Comment Sezary Cell PT (9.0-12.0) Seconds INR (0.9-1.1) Sodium 136 (136-145) mmol/L Potassium 3.9 (3.5-5.1) mmol/L Chloride 102 (98-107) mmol/L Carbon Dioxide 27 (21-32) mmol/L Anion Gap 7.0 (3-11) BUN 23 H (7-18) mg/dl Creatinine 0.80 (0.6-1.4) mg/dl Est Cr Clr Drug Dosing 166.8 ml/min Est GFR ( Amer) 120.7 Est GFR (Non-Af Amer) 104.2 BUN/Creatinine Ratio 28.3 H (10-20) Glucose 123 H (70-99) mg/dl Calcium 8.2 L (8.5-10.1) mg/dl Phosphorus 3.9 (2.5-4.9) mg/dl Magnesium 2.2 (1.8-2.4) mg/dl Total Bilirubin 0.4 (0.2-1) mg/dl Direct Bilirubin 0.1 (0-0.2) mg/dl AST 45 H (15-37) U/L ALT 154 H (12-78) U/L Alkaline Phosphatase 72 (45-117) U/L Total Protein 8.4 H (6.4-8.2) gm/dl Albumin 3.2 L (3.4-5.0) gm/dl Globulin (2.5-4.0) gm/dl Albumin/Globulin Ratio (0.9-2) Urine Color Yellow Urine Appearance Clear (Clear) Urine pH 7.0 (4.5-7.5) Ur Specific [place] 1.042 H (1.000-1.030) Urine Protein Negative (Negative) Urine Glucose (UA) Negative (Negative) Urine Ketones Negative (Negative) Urine Blood Negative (Negative) Urine Nitrite Negative (Negative) Urine Bilirubin Negative (Negative) Urine Urobilinogen Negative (Negative) Ur Leukocyte Esterase Negative (Negative) Blood Type Cancelled Rho(D) Type Cancelled Antibody Screen Cancelled Crossmatch See Detail 11/22/18 11/22/18 Range/Units 21:00 21:00 WBC 0.40 L* (4.8-10.8) K/uL RBC 2.46 L (4.7-6.1) M/uL Hgb 7.1 L (14.0-18.0) g/dL Hct 19.5 L* (42-52) % MCV 79.3 L (80-100) fL MCH 28.9 (25-34) pg MCHC 36.4 H (32-36) g/dL RDW Std Deviation 38.3 (36.4-46.3) fL RDW Coeff of Olu 12.9 (11.5-14.5) % Plt Count 2 L* (130-400) K/uL MPV (7.4-10.4) fL Immature Gran % (Auto) Cancelled Neut % (Auto) Cancelled Lymph % (Auto) Cancelled [place] % (Auto) Cancelled Eos % (Auto) Cancelled Baso % (Auto) Cancelled Immature Gran # (Auto) Cancelled Neut # (Auto) Cancelled Lymph # (Auto) Cancelled [place] # (Auto) Cancelled Eos # (Auto) Cancelled Baso # (Auto) Cancelled Neutrophils % (Manual) Cancelled Band Neutrophils % Cancelled Lymphocytes % (Manual) Cancelled Prolymphocyte % Cancelled Reactive Lymphs % (Man) Cancelled Monocytes % (Manual) Cancelled Eosinophils % (Manual) Cancelled Basophils % (Manual) Cancelled Metamyelocytes % (Man) Cancelled Myelocytes % (Man) Cancelled Promyelocytes % (Man) Cancelled Blast Cells % (Manual) Cancelled Plasma Cell % (Manual) Cancelled Other Cells % Cancelled Nucleated RBC % Cancelled Neutrophils # (Manual) Cancelled Band Neutrophils # Cancelled Total Absolute Neuts Cancelled Lymphocytes # (Manual) Cancelled Prolymphocyte # Cancelled Reactive Lymphs # Cancelled Total Abs Lymphocytes Cancelled Monocytes # (Manual) Cancelled Eosinophils # (Manual) Cancelled Basophils # (Manual) Cancelled Metamyelocytes # (Man) Cancelled Myelocytes # (Manual) Cancelled Promyelocytes # (Man) Cancelled Blast Cells # (Man) Cancelled Plasma Cell # (Manual) Cancelled Other Cells # Cancelled Nucleated RBCs # (Man) Cancelled Hypersegmented Neuts Cancelled Hyposegmented Neuts Cancelled Hypogranular Neuts Cancelled Large Granular Lymphs Cancelled # Lrg Granular Lymphs Cancelled Hairy Cells Cancelled Smudge Cells Cancelled Toxic Granulation Cancelled Toxic Vacuolation Cancelled Dohle Bodies Cancelled Rox Rods Cancelled Hypogranular Platelets Cancelled Clumped Platelets Cancelled Giant Platelets Cancelled Platelet Satelliting Cancelled RBC Morphology Cancelled Polychromasia Cancelled Hypochromasia Cancelled Poikilocytosis Cancelled Basophilic Stippling Cancelled Anisocytosis Cancelled Microcytosis Cancelled Macrocytosis Cancelled Spherocytes Cancelled Pappenheimer Bodies Cancelled Sickle Cells Cancelled Target Cells Cancelled Tear Drop Cells Cancelled Ovalocytes Cancelled Stomatocytes Cancelled [place]-Porum Bodies Cancelled Echinocytes Cancelled Acanthocytes (Spur) Cancelled Rouleaux Cancelled RBC Agglutinates Cancelled Schistocytes Cancelled RBC Morph Comment Cancelled Sezary Cell Cancelled PT 11.5 (9.0-12.0) Seconds INR 1.1 (0.9-1.1) Sodium (136-145) mmol/L Potassium (3.5-5.1) mmol/L Chloride (98-107) mmol/L Carbon Dioxide (21-32) mmol/L Anion Gap (3-11) BUN (7-18) mg/dl Creatinine (0.6-1.4) mg/dl Est Cr Clr Drug Dosing ml/min Est GFR ( Amer) Est GFR (Non-Af Amer) BUN/Creatinine Ratio (10-20) Glucose (70-99) mg/dl Calcium (8.5-10.1) mg/dl Phosphorus (2.5-4.9) mg/dl Magnesium (1.8-2.4) mg/dl Total Bilirubin (0.2-1) mg/dl Direct Bilirubin (0-0.2) mg/dl AST (15-37) U/L ALT (12-78) U/L Alkaline Phosphatase (45-117) U/L Total Protein (6.4-8.2) gm/dl Albumin (3.4-5.0) gm/dl Globulin (2.5-4.0) gm/dl Albumin/Globulin Ratio (0.9-2) Urine Color Urine Appearance (Clear) Urine pH (4.5-7.5) Ur Specific [place] (1.000-1.030) Urine Protein (Negative) Urine Glucose (UA) (Negative) Urine Ketones (Negative) Urine Blood (Negative) Urine Nitrite (Negative) Urine Bilirubin (Negative) Urine Urobilinogen (Negative) Ur Leukocyte Esterase (Negative) Blood Type Rho(D) Type Antibody Screen Crossmatch Diagnostic Findings MR pelvis wo con CLINICAL HISTORY: Neutropenic fever. Suspected perirectal abscess. COMPARISON STUDY: No previous studies for comparison. FINDINGS: Imaging was performed in the axial and coronal planes. There is artifact from a total left hip arthroplasty. There is no pathologic marrow edema. There is no pathologic adenopathy. No abnormal pelvic masses are visualized. There is a fat-containing umbilical hernia. There is small fat-containing inguinal hernias. There are no fluid collections to indicate an abscess. There are perianal inflammatory changes with a suspected sinus tract extending to the right gluteal fold. There is also equivocal sinus tract to the presacral region. There is right gluteal fold inflammatory change.
--- NOTE | 2018-11-23 19:48 | Hospitalist Progress Note ---
Date of Service November 23, 2018 Assessment & Plan (1) Neutropenic fever: Patient febrile, tachycardic, WBC=0.4, differential not able to be obtained. Does not appear toxic or septic at present. With draining gluteal wounds-no evidence of definite abscess on pelvic MRI General surgery consultation appreciated-no plans for intervention at this time especially in the setting of severe pancytopenia Continues to spike fevers today and the likely source is his gluteal infection Urinalysis is negative, blood cultures no growth to date, chest x-ray negative and no pulmonary symptoms -Repeat blood cultures again-patient is refusing peripherally obtained blood cultures due to fear of severe bleeding -Neutropenic precautions -Continue empiric antibiotics with Vancomycin and Cefepime, added Flagyl for anaerobic coverage given the perirectal infection -Can DC IV fluids -Hematology consultation - appreciate assistance (2) MDS (myelodysplastic syndrome): Complicated MDS, 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 Patient follows with Dr. Chávez. -Continues with severe pancytopenia -Transfuse platelets x 1 unit today -Transfuse 2 units PRBCs -Follow CBC daily -Hematology consultation - appreciate assistance with this case (3) Pancytopenia: As above. Patient is to go to [facility] for possible bone marrow transplant - his sister is a match. To be pursued on discharge when acute issues resolve -CBC daily -Continue B12 supplementation (4) Hypertension: Blood pressure stable at present -Continue to monitor (5) Abnormal LFTs: Noted. No GI complaints. HCV antibody negative during previous stay. 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 (10) DVT prophylaxis: Ambulation only, given severe anemia and thrombocytopenia, could not tolerate chemoprophylaxis or SCDs Subjective Patient reports feeling better than yesterday. He had another fever today. Has some pain in the buttocks. Reports "I am fine, I just have a problem with my blood" No bleeding today from anywhere Telemetry with normal sinus rhythm and some sinus tachycardia with rates 80s to low 100s Discussed his care with his oncologist, Dr. Chávez Review of Systems All systems reviewed & are unremarkable except as noted in HPI & below Physical Exam 2 Vital Signs (Past 24 Hours): Last Vital Signs Temp 37.7 C H 11/23/18 18:33 Pulse 97 H 11/23/18 18:33 Resp 18 11/23/18 18:33 BP 118/69 11/23/18 18:33 Pulse Ox 98 11/23/18 18:33 Constitutional: WD/WN, vitals as above + morbidly obese Eyes: PERRL, conjunctivae normal, anicteric sclerae ENMT: external ear and nose normal, oropharynx normal Neck: trachea midline, no thyromegaly Respiratory: normal respiratory effort, lungs clear to auscultation Cardiovascular: RRR, no murmur, no edema Gastrointestinal (Abdomen): normal bowel sounds, soft, nontender, no hepatosplenomegaly Rectal Exam: no hemorrhoids and + abnormal visual inspection of rectum (Right medial buttock with 2 indurated open wounds, not able to express any purulence at this time, tender to palpation, surrounding erythema) Musculoskeletal: Extremities: extremities normal to inspection; no cyanosis and no clubbing Skin: no rashes, warm and dry Neurologic: moves all extremities and awake; no focal motor deficits Psychiatric: A+Ox3, euthymic affect Results & Data Laboratory Results 11/24/18 11/23/18 11/23/18 Range/Units 05:42 09:29 08:27 WBC 0.37 L* (4.8-10.8) K/uL RBC 2.15 L (4.7-6.1) M/uL Hgb 6.2 L* (14.0-18.0) g/dL Hct 17.1 L* (42-52) % MCV 79.5 L (80-100) fL MCH 28.8 (25-34) pg MCHC 36.3 H (32-36) g/dL RDW Std Deviation 37.9 (36.4-46.3) fL RDW Coeff of Olu 12.9 (11.5-14.5) % Plt Count 13 L* D (130-400) K/uL MPV 7.7 (7.4-10.4) fL Immature Gran % (Auto) Cancelled Neut % (Auto) Cancelled Lymph % (Auto) Cancelled Kendall % (Auto) Cancelled Eos % (Auto) Cancelled Baso % (Auto) Cancelled Immature Gran # (Auto) Cancelled Neut # (Auto) Cancelled Lymph # (Auto) Cancelled Kendall # (Auto) Cancelled Eos # (Auto) Cancelled Baso # (Auto) Cancelled Neutrophils % (Manual) Cancelled Band Neutrophils % Cancelled Lymphocytes % (Manual) Cancelled Prolymphocyte % Cancelled Reactive Lymphs % (Man) Cancelled Monocytes % (Manual) Cancelled Eosinophils % (Manual) Cancelled Basophils % (Manual) Cancelled Metamyelocytes % (Man) Cancelled Myelocytes % (Man) Cancelled Promyelocytes % (Man) Cancelled Blast Cells % (Manual) Cancelled Plasma Cell % (Manual) Cancelled Other Cells % Cancelled Nucleated RBC % Cancelled Neutrophils # (Manual) Cancelled Band Neutrophils # Cancelled Total Absolute Neuts Cancelled Lymphocytes # (Manual) Cancelled Prolymphocyte # Cancelled Reactive Lymphs # Cancelled Total Abs Lymphocytes Cancelled Monocytes # (Manual) Cancelled Eosinophils # (Manual) Cancelled Basophils # (Manual) Cancelled Metamyelocytes # (Man) Cancelled Myelocytes # (Manual) Cancelled Promyelocytes # (Man) Cancelled Blast Cells # (Man) Cancelled Plasma Cell # (Manual) Cancelled Other Cells # Cancelled Nucleated RBCs # (Man) Cancelled Hypersegmented Neuts Cancelled Hyposegmented Neuts Cancelled Hypogranular Neuts Cancelled Large Granular Lymphs Cancelled # Lrg Granular Lymphs Cancelled Hairy Cells Cancelled Smudge Cells Cancelled Toxic Granulation Cancelled Toxic Vacuolation Cancelled Dohle Bodies Cancelled Rox Rods Cancelled Hypogranular Platelets Cancelled Clumped Platelets Cancelled Giant Platelets Cancelled Platelet Satelliting Cancelled RBC Morphology Cancelled Polychromasia Cancelled Hypochromasia Cancelled Poikilocytosis Cancelled Basophilic Stippling Cancelled Anisocytosis Cancelled Microcytosis Cancelled Macrocytosis Cancelled Spherocytes Cancelled Pappenheimer Bodies Cancelled Sickle Cells Cancelled Target Cells Cancelled Tear Drop Cells Cancelled Ovalocytes Cancelled Stomatocytes Cancelled Holland-Weldon Bodies Cancelled Echinocytes Cancelled Acanthocytes (Spur) Cancelled Rouleaux Cancelled RBC Agglutinates Cancelled Schistocytes Cancelled RBC Morph Comment Cancelled Sezary Cell Cancelled Sodium (136-145) mmol/L Potassium (3.5-5.1) mmol/L Chloride (98-107) mmol/L Carbon Dioxide (21-32) mmol/L Anion Gap (3-11) BUN (7-18) mg/dl Creatinine 0.90 (0.6-1.4) mg/dl Est Cr Clr Drug Dosing 150.1 ml/min Est GFR ( Amer) 115.0 Est GFR (Non-Af Amer) 99.2 BUN/Creatinine Ratio (10-20) Glucose (70-99) mg/dl Calcium (8.5-10.1) mg/dl Total Bilirubin (0.2-1) mg/dl AST (15-37) U/L ALT (12-78) U/L Alkaline Phosphatase (45-117) U/L Total Protein (6.4-8.2) gm/dl Albumin (3.4-5.0) gm/dl Globulin (2.5-4.0) gm/dl Albumin/Globulin Ratio (0.9-2) Blood Type O Positive Rho(D) Type Antibody Screen NEGATIVE Crossmatch See Detail 11/23/18 11/22/18 Range/Units 08:27 22:19 WBC (4.8-10.8) K/uL RBC (4.7-6.1) M/uL Hgb (14.0-18.0) g/dL Hct (42-52) % MCV (80-100) fL MCH (25-34) pg MCHC (32-36) g/dL RDW Std Deviation (36.4-46.3) fL RDW Coeff of Olu (11.5-14.5) % Plt Count (130-400) K/uL MPV (7.4-10.4) fL Immature Gran % (Auto) Neut % (Auto) Lymph % (Auto) Kendall % (Auto) Eos % (Auto) Baso % (Auto) Immature Gran # (Auto) Neut # (Auto) Lymph # (Auto) Kendall # (Auto) Eos # (Auto) Baso # (Auto) Neutrophils % (Manual) Band Neutrophils % Lymphocytes % (Manual) Prolymphocyte % Reactive Lymphs % (Man) Monocytes % (Manual) Eosinophils % (Manual) Basophils % (Manual) Metamyelocytes % (Man) Myelocytes % (Man) Promyelocytes % (Man) Blast Cells % (Manual) Plasma Cell % (Manual) Other Cells % Nucleated RBC % Neutrophils # (Manual) Band Neutrophils # Total Absolute Neuts Lymphocytes # (Manual) Prolymphocyte # Reactive Lymphs # Total Abs Lymphocytes Monocytes # (Manual) Eosinophils # (Manual) Basophils # (Manual) Metamyelocytes # (Man) Myelocytes # (Manual) Promyelocytes # (Man) Blast Cells # (Man) Plasma Cell # (Manual) Other Cells # Nucleated RBCs # (Man) Hypersegmented Neuts Hyposegmented Neuts Hypogranular Neuts Large Granular Lymphs # Lrg Granular Lymphs Hairy Cells Smudge Cells Toxic Granulation Toxic Vacuolation Dohle Bodies Rox Rods Hypogranular Platelets Clumped Platelets Giant Platelets Platelet Satelliting RBC Morphology Polychromasia Hypochromasia Poikilocytosis Basophilic Stippling Anisocytosis Microcytosis Macrocytosis Spherocytes Pappenheimer Bodies Sickle Cells Target Cells Tear Drop Cells Ovalocytes Stomatocytes Holland-Weldon Bodies Echinocytes Acanthocytes (Spur) Rouleaux RBC Agglutinates Schistocytes RBC Morph Comment Sezary Cell Sodium 137 (136-145) mmol/L Potassium 3.5 (3.5-5.1) mmol/L Chloride 103 (98-107) mmol/L Carbon Dioxide 28 (21-32) mmol/L Anion Gap 6.0 (3-11) BUN 21 H (7-18) mg/dl Creatinine 0.91 (0.6-1.4) mg/dl Est Cr Clr Drug Dosing 147.4 ml/min Est GFR ( Amer) 113.5 Est GFR (Non-Af Amer) 97.9 BUN/Creatinine Ratio 22.7 H (10-20) Glucose 117 H (70-99) mg/dl Calcium 8.4 L (8.5-10.1) mg/dl Total Bilirubin 0.7 (0.2-1) mg/dl AST 32 (15-37) U/L ALT 118 H (12-78) U/L Alkaline Phosphatase 64 (45-117) U/L Total Protein 8.0 (6.4-8.2) gm/dl Albumin 3.0 L (3.4-5.0) gm/dl Globulin 5.0 H (2.5-4.0) gm/dl Albumin/Globulin Ratio 0.6 L (0.9-2) Blood Type Cancelled Rho(D) Type Cancelled Antibody Screen Cancelled Crossmatch See Detail _ (1) Hypertension Hypertension type: unspecified Qualified Code(s): I10 - Essential (primary) hypertension
[2018-11-24] MEDS: VANCOMYCIN HCL 1,750 MG in SODIUM CHLORIDE 0.9% 500 ML IV SCH ×2 (01:16→09:37)
[2018-11-24] MEDS: metroNIDAZOLE 500 MG/100 ML BAG IV SCH ×3 (02:22→19:02)
[2018-11-24] MEDS: CEFEPIME 2,000 MG in SYRINGE 7.5 ML IV SCH ×3 (05:43→22:04)
[2018-11-24 06:44] LABS: Creatinine Clr Calc Pharmacy 150.1 ml/min; Est GFR (Non-African American) 99.2
[2018-11-24 08:04] LABS: Hematocrit (blood only) 20.2 % (42-52); Hemoglobin 7.1 g/dL (14.0-18.0); Mean Corpuscular Hgb Conc 35.1 g/dL (32-36); Mean Corpuscular Volume 81.1 fL (80-100); Mean Platelet Volume 11.5 fL (7.4-10.4); Platelet Count 20 K/uL (130-400); RDW Coefficient of Variation 12.9 % (11.5-14.5); RDW Standard Deviation 38.5 fL (36.4-46.3); Red Blood Count 2.49 M/uL (4.7-6.1); White Blood Count 0.26 K/uL (4.8-10.8)
[2018-11-24 08:09] LABS: Albumin Level 2.7 gm/dl (3.4-5.0); BUN Creatinine Ratio 20.4 (10-20); Bilirubin Direct 0.1 mg/dl (0-0.2); Creatinine Clr Calc Pharmacy 150.1 ml/min; Est GFR (Non-African American) 99.2; Potassium 3.9 mmol/L (3.5-5.1)
[2018-11-24 08:11] LABS: Bilirubin,Total 0.6 mg/dl (0.2-1); Total Protein 7.7 gm/dl (6.4-8.2)
[2018-11-24] MEDS ORDERED: VANCOMYCIN TROUGH ONE (08:30)
[2018-11-24] MEDS: CYANOCOBALAMIN 500 MCG TABLET (VITAMIN B-12) PO SCH (08:31)
[2018-11-24] MEDS: ACYCLOVIR 400 MG TAB PO SCH ×2 (08:31→21:03)
[2018-11-24] MEDS: ALLOPURINOL 300 MG TAB PO SCH (08:31)
[2018-11-24] MEDS: GABAPENTIN 100 MG CAP PO SCH ×3 (08:32→21:03)
[2018-11-24] MEDS: DOCUSATE SODIUM/SENNA 50/8.6MG TAB PO PRN (08:37)
[2018-11-24] MEDS ORDERED: SODIUM CHLORIDE 0.9% 250 ML IV PRN (09:24)
[2018-11-24] MEDS: FILGRASTIM 480 MCG/1.6 ML VIAL SC SCH (10:47)
[2018-11-24] MEDS: ACETAMINOPHEN 325 MG TAB PO PRN ×2 (12:54→22:10)
--- NOTE | 2018-11-24 13:36 | Surgery Progress Note ---
Date of Service November 24, 2018 Assessment & Plan (1) Cellulitis of buttock, right: Two superficial wounds of the right buttock/gluteal fold No evidence of fluctuance to suggest abscess on examination, induration improved No evidence of abscess/fluid collection on pelvic MRI Plan: No evidence of abscess therefore no need for immediate surgical intervention for I&D. Would continue IV abx, pain management as needed Recommend triple antibiotic ointment applied to wounds and covered with dressing daily, change dressing as needed. Recommend dressing to prevent wound contamination with stool. (Patient refusing to apply dressing until he has bowel movement today) Monitor labs Given severe myelodysplastic syndrome, pancytopenia, and requiring weekly transfusions would defer I&D unless there is evidence of abscess/drainable fluid collection. Our services signing off, please call with questions or concerns Dr. Brian has seen and examined pt, agrees with above Subjective feeling better buttock pain better controlled, using cushion did not feel feverish last night Physical Exam 2 Vital Signs (Past 24 Hours): Last Vital Signs Temp 36.9 C 11/24/18 11:50 Pulse 82 11/24/18 11:50 Resp 18 11/24/18 11:50 BP 135/82 11/24/18 11:50 Pulse Ox 100 11/24/18 11:50 Constitutional: WD/WN, vitals as above + morbidly obese; no acute distress Skin: Right Buttock/gluteal fold: There are two superficial wounds present with necrosis. Surrounding induration is improved with no palpable fluctuance, Erythema improved. Psychiatric: A+Ox3, euthymic affect Results & Data Laboratory Results 11/24/18 11/24/18 11/24/18 Range/Units 08:38 05:42 05:42 WBC 0.26 L* (4.8-10.8) K/uL RBC 2.49 L (4.7-6.1) M/uL Hgb 7.1 L (14.0-18.0) g/dL Hct 20.2 L* (42-52) % MCV 81.1 (80-100) fL MCH 28.5 (25-34) pg MCHC 35.1 (32-36) g/dL RDW Std Deviation 38.5 (36.4-46.3) fL RDW Coeff of Olu 12.9 (11.5-14.5) % Plt Count 20 L* D (130-400) K/uL MPV 11.5 H (7.4-10.4) fL Immature Gran % (Auto) Cancelled Neut % (Auto) Cancelled Lymph % (Auto) Cancelled Wilkinson % (Auto) Cancelled Eos % (Auto) Cancelled Baso % (Auto) Cancelled Immature Gran # (Auto) Cancelled Neut # (Auto) Cancelled Lymph # (Auto) Cancelled Wilkinson # (Auto) Cancelled Eos # (Auto) Cancelled Baso # (Auto) Cancelled Neutrophils % (Manual) Cancelled Band Neutrophils % Cancelled Lymphocytes % (Manual) Cancelled Prolymphocyte % Cancelled Reactive Lymphs % (Man) Cancelled Monocytes % (Manual) Cancelled Eosinophils % (Manual) Cancelled Basophils % (Manual) Cancelled Metamyelocytes % (Man) Cancelled Myelocytes % (Man) Cancelled Promyelocytes % (Man) Cancelled Blast Cells % (Manual) Cancelled Plasma Cell % (Manual) Cancelled Other Cells % Cancelled Nucleated RBC % Cancelled Neutrophils # (Manual) Cancelled Band Neutrophils # Cancelled Total Absolute Neuts Cancelled Lymphocytes # (Manual) Cancelled Prolymphocyte # Cancelled Reactive Lymphs # Cancelled Total Abs Lymphocytes Cancelled Monocytes # (Manual) Cancelled Eosinophils # (Manual) Cancelled Basophils # (Manual) Cancelled Metamyelocytes # (Man) Cancelled Myelocytes # (Manual) Cancelled Promyelocytes # (Man) Cancelled Blast Cells # (Man) Cancelled Plasma Cell # (Manual) Cancelled Other Cells # Cancelled Nucleated RBCs # (Man) Cancelled Hypersegmented Neuts Cancelled Hyposegmented Neuts Cancelled Hypogranular Neuts Cancelled Large Granular Lymphs Cancelled # Lrg Granular Lymphs Cancelled Hairy Cells Cancelled Smudge Cells Cancelled Toxic Granulation Cancelled Toxic Vacuolation Cancelled Dohle Bodies Cancelled Rox Rods Cancelled Hypogranular Platelets Cancelled Clumped Platelets Cancelled Giant Platelets Cancelled Platelet Satelliting Cancelled RBC Morphology Cancelled Polychromasia Cancelled Hypochromasia Cancelled Poikilocytosis Cancelled Basophilic Stippling Cancelled Anisocytosis Cancelled Microcytosis Cancelled Macrocytosis Cancelled Spherocytes Cancelled Pappenheimer Bodies Cancelled Sickle Cells Cancelled Target Cells Cancelled Tear Drop Cells Cancelled Ovalocytes Cancelled Stomatocytes Cancelled Holland-Zephyr Bodies Cancelled Echinocytes Cancelled Acanthocytes (Spur) Cancelled Rouleaux Cancelled RBC Agglutinates Cancelled Schistocytes Cancelled RBC Morph Comment Cancelled Sezary Cell Cancelled Sodium 137 (136-145) mmol/L Potassium 3.9 (3.5-5.1) mmol/L Chloride 105 (98-107) mmol/L Carbon Dioxide 29 (21-32) mmol/L Anion Gap 4.0 (3-11) BUN 18 (7-18) mg/dl Creatinine 0.90 (0.6-1.4) mg/dl Est Cr Clr Drug Dosing 150.1 ml/min Est GFR ( Amer) 115.0 Est GFR (Non-Af Amer) 99.2 BUN/Creatinine Ratio 20.4 H (10-20) Glucose 96 (70-99) mg/dl Calcium 8.0 L (8.5-10.1) mg/dl Total Bilirubin 0.6 (0.2-1) mg/dl Direct Bilirubin 0.1 (0-0.2) mg/dl AST 40 H (15-37) U/L ALT 121 H (12-78) U/L Alkaline Phosphatase 63 (45-117) U/L Total Protein 7.7 (6.4-8.2) gm/dl Albumin 2.7 L (3.4-5.0) gm/dl Vancomycin Trough 18.3 (See Comment) mcg/ml Blood Type Antibody Screen Crossmatch 11/24/18 11/23/18 Range/Units 05:42 09:29 WBC (4.8-10.8) K/uL RBC (4.7-6.1) M/uL Hgb (14.0-18.0) g/dL Hct (42-52) % MCV (80-100) fL MCH (25-34) pg MCHC (32-36) g/dL RDW Std Deviation (36.4-46.3) fL RDW Coeff of Olu (11.5-14.5) % Plt Count (130-400) K/uL MPV (7.4-10.4) fL Immature Gran % (Auto) Neut % (Auto) Lymph % (Auto) Wilkinson % (Auto) Eos % (Auto) Baso % (Auto) Immature Gran # (Auto) Neut # (Auto) Lymph # (Auto) Wilkinson # (Auto) Eos # (Auto) Baso # (Auto) Neutrophils % (Manual) Band Neutrophils % Lymphocytes % (Manual) Prolymphocyte % Reactive Lymphs % (Man) Monocytes % (Manual) Eosinophils % (Manual) Basophils % (Manual) Metamyelocytes % (Man) Myelocytes % (Man) Promyelocytes % (Man) Blast Cells % (Manual) Plasma Cell % (Manual) Other Cells % Nucleated RBC % Neutrophils # (Manual) Band Neutrophils # Total Absolute Neuts Lymphocytes # (Manual) Prolymphocyte # Reactive Lymphs # Total Abs Lymphocytes Monocytes # (Manual) Eosinophils # (Manual) Basophils # (Manual) Metamyelocytes # (Man) Myelocytes # (Manual) Promyelocytes # (Man) Blast Cells # (Man) Plasma Cell # (Manual) Other Cells # Nucleated RBCs # (Man) Hypersegmented Neuts Hyposegmented Neuts Hypogranular Neuts Large Granular Lymphs # Lrg Granular Lymphs Hairy Cells Smudge Cells Toxic Granulation Toxic Vacuolation Dohle Bodies Rox Rods Hypogranular Platelets Clumped Platelets Giant Platelets Platelet Satelliting RBC Morphology Polychromasia Hypochromasia Poikilocytosis Basophilic Stippling Anisocytosis Microcytosis Macrocytosis Spherocytes Pappenheimer Bodies Sickle Cells Target Cells Tear Drop Cells Ovalocytes Stomatocytes Holland-Zephyr Bodies Echinocytes Acanthocytes (Spur) Rouleaux RBC Agglutinates Schistocytes RBC Morph Comment Sezary Cell Sodium (136-145) mmol/L Potassium (3.5-5.1) mmol/L Chloride (98-107) mmol/L Carbon Dioxide (21-32) mmol/L Anion Gap (3-11) BUN (7-18) mg/dl Creatinine 0.90 (0.6-1.4) mg/dl Est Cr Clr Drug Dosing 150.1 ml/min Est GFR ( Amer) 115.0 Est GFR (Non-Af Amer) 99.2 BUN/Creatinine Ratio (10-20) Glucose (70-99) mg/dl Calcium (8.5-10.1) mg/dl Total Bilirubin (0.2-1) mg/dl Direct Bilirubin (0-0.2) mg/dl AST (15-37) U/L ALT (12-78) U/L Alkaline Phosphatase (45-117) U/L Total Protein (6.4-8.2) gm/dl Albumin (3.4-5.0) gm/dl Vancomycin Trough (See Comment) mcg/ml Blood Type O Positive Antibody Screen NEGATIVE Crossmatch See Detail
[2018-11-24] MEDS: NEOMYCIN/POLYMYX/BACITR OINT 15 GM TUBE EXT SCH (13:58)
[2018-11-24] MEDS: HYDROCORTISONE HC 2.5% CRM 30GM TUBE EXT PRN (13:58)
[2018-11-24] MEDS ORDERED: DAPTOMYCIN CONSULT ACTIVE PRN (15:18)
--- NOTE | 2018-11-24 15:27 | Pharmacy Report ---
Pharmacy Abx Dose Short Note - Date of Service November 24, 2018 - Assessment & Plan Assessment 48 year old M receiving vancomycin, cefepime and Flagyl for empiric treatment of fevers and pancytopenia with R buttock cellulitis. Day # 2 of antimicrobial therapy. Blood cultures still pending. The patient missed a dose of vancomycin last night and a trough level drawn this AM was still therapeutic, indicating that he is accumulating very quickly, which I anticipated with such a large BMI. I spoke with Dr. Randall to inquire about switching to daptomycin, which she agreed. Will plan to switch now, providing the first dose when next dose of vancomycin would have been administered. Plan 1. Vancomycin d/c'd 2. Daptomycin 650 mg (6 mg/kg based on adjusted body weight) q24h until BCx negative. Will f/u with provider tomorrow regarding plan to continue. 3. Pharmacy not consulted on cefepime or Flagyl but dosing is appropriate Pharmacy will continue to follow and will adjust dose/frequency as necessary. Thank you.
--- NOTE | 2018-11-24 16:25 | Hospitalist Progress Note ---
Date of Service November 24, 2018 Assessment & Plan (1) Neutropenic fever: Patient febrile, tachycardic, WBC=0.4 on admission and remains severely low, differential not able to be obtained. With draining gluteal wounds-no evidence of definite abscess on pelvic MRI-most likely source of infection Blood cultures remain negative to date General surgery consultation appreciated-no plans for intervention at this time especially in the setting of severe pancytopenia Fevers resolving Urinalysis is negative, blood cultures no growth to date, chest x-ray negative and no pulmonary symptoms -Continue to follow-up on blood cultures -Continue neutropenic precautions -Continue empiric antibiotics with Vancomycin and Cefepime, and Flagyl for anaerobic coverage given the perirectal infection -Hematology consultation - appreciate assistance -Plan to start Neupogen 480 mcg SQ daily -Follow CBC If remains afebrile blood cultures no growth, can discharge to home on oral antibiotics with close follow-up with general surgery and oncology (2) MDS (myelodysplastic syndrome): Complicated MDS, 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 Patient follows with Dr. Chávez. -Continues with severe pancytopenia although platelets up to 20,000 today Received 2 units of PRBCs each day of the admission so far -Transfuse 2 more units of PRBCs today for hemoglobin of 7.1-continue to transfuse to keep hemoglobin greater than 7.5 as per oncology recommendations -Continue to transfuse platelets to keep above 15,000 -Follow CBC daily -Hematology consultation - appreciate assistance with this case -Víctor has multiple appointments set up in [place] in the next couple of weeks for all of his preprocedural testing for stem cell transplant (3) Pancytopenia: As above. Patient is to go to [facility] [place] for possible bone marrow transplant - his sister is a match. To be pursued on discharge when acute issues resolve -CBC daily -Continue B12 supplementation (4) Hypertension: Blood pressure stable at present -Continue to monitor (5) Abnormal LFTs: Noted. AST mildly elevated at 40, ALT mildly elevated at 121, could be side effect of medication versus illness No GI complaints. HCV antibody negative during previous stay. 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 (10) DVT prophylaxis: Ambulation only, given severe anemia and thrombocytopenia, could not tolerate chemoprophylaxis or SCDs Disposition-stable for transfer to medical oncology floor Subjective Pt feeling well today, bottom is less painful. No further fevers overnight. Denies chest pain shortness of breath. He is ambulating around the room. Denies abdominal pain. No further drainage that he is noted from the buttocks wounds feeling like his energy is a little better today. Telemetry with normal sinus rhythm with rates in the 80s-90s I discussed the case with oncology today and [place] [facility] [place] Systems All systems reviewed & are unremarkable except as noted in HPI & below Physical Exam 2 Vital Signs (Past 24 Hours): Last Vital Signs Temp 36.9 C 11/24/18 15:34 Pulse 82 11/24/18 15:34 Resp 20 11/24/18 15:34 BP 139/82 11/24/18 15:34 Pulse Ox 98 11/24/18 15:34 Constitutional: WD/WN, vitals as above + morbidly obese Eyes: PERRL, conjunctivae normal, anicteric sclerae Neck: trachea midline, no thyromegaly Respiratory: normal respiratory effort, lungs clear to auscultation Cardiovascular: RRR, no murmur, no edema Gastrointestinal (Abdomen): normal bowel sounds, soft, nontender, no hepatosplenomegaly Musculoskeletal: Extremities: extremities normal to inspection; no cyanosis and no clubbing Skin: no rashes, warm and dry Neurologic: moves all extremities and awake; no focal motor deficits Psychiatric: A+Ox3, euthymic affect Results & Data Laboratory Results 11/24/18 11/24/18 11/24/18 Range/Units 08:38 05:42 05:42 WBC 0.26 L* (4.8-10.8) K/uL RBC 2.49 L (4.7-6.1) M/uL Hgb 7.1 L (14.0-18.0) g/dL Hct 20.2 L* (42-52) % MCV 81.1 (80-100) fL MCH 28.5 (25-34) pg MCHC 35.1 (32-36) g/dL RDW Std Deviation 38.5 (36.4-46.3) fL RDW Coeff of Olu 12.9 (11.5-14.5) % Plt Count 20 L* D (130-400) K/uL MPV 11.5 H (7.4-10.4) fL Immature Gran % (Auto) Cancelled Neut % (Auto) Cancelled Lymph % (Auto) Cancelled [place] % (Auto) Cancelled Eos % (Auto) Cancelled Baso % (Auto) Cancelled Immature Gran # (Auto) Cancelled Neut # (Auto) Cancelled Lymph # (Auto) Cancelled [place] # (Auto) Cancelled Eos # (Auto) Cancelled Baso # (Auto) Cancelled Neutrophils % (Manual) Cancelled Band Neutrophils % Cancelled Lymphocytes % (Manual) Cancelled Prolymphocyte % Cancelled Reactive Lymphs % (Man) Cancelled Monocytes % (Manual) Cancelled Eosinophils % (Manual) Cancelled Basophils % (Manual) Cancelled Metamyelocytes % (Man) Cancelled Myelocytes % (Man) Cancelled Promyelocytes % (Man) Cancelled Blast Cells % (Manual) Cancelled Plasma Cell % (Manual) Cancelled Other Cells % Cancelled Nucleated RBC % Cancelled Neutrophils # (Manual) Cancelled Band Neutrophils # Cancelled Total Absolute Neuts Cancelled Lymphocytes # (Manual) Cancelled Prolymphocyte # Cancelled Reactive Lymphs # Cancelled Total Abs Lymphocytes Cancelled Monocytes # (Manual) Cancelled Eosinophils # (Manual) Cancelled Basophils # (Manual) Cancelled Metamyelocytes # (Man) Cancelled Myelocytes # (Manual) Cancelled Promyelocytes # (Man) Cancelled Blast Cells # (Man) Cancelled Plasma Cell # (Manual) Cancelled Other Cells # Cancelled Nucleated RBCs # (Man) Cancelled Hypersegmented Neuts Cancelled Hyposegmented Neuts Cancelled Hypogranular Neuts Cancelled Large Granular Lymphs Cancelled # Lrg Granular Lymphs Cancelled Hairy Cells Cancelled Smudge Cells Cancelled Toxic Granulation Cancelled Toxic Vacuolation Cancelled Dohle Bodies Cancelled Rox Rods Cancelled Hypogranular Platelets Cancelled Clumped Platelets Cancelled Giant Platelets Cancelled Platelet Satelliting Cancelled RBC Morphology Cancelled Polychromasia Cancelled Hypochromasia Cancelled Poikilocytosis Cancelled Basophilic Stippling Cancelled Anisocytosis Cancelled Microcytosis Cancelled Macrocytosis Cancelled Spherocytes Cancelled Pappenheimer Bodies Cancelled Sickle Cells Cancelled Target Cells Cancelled Tear Drop Cells Cancelled Ovalocytes Cancelled Stomatocytes Cancelled [place] Bodies Cancelled Echinocytes Cancelled Acanthocytes (Spur) Cancelled Rouleaux Cancelled RBC Agglutinates Cancelled Schistocytes Cancelled RBC Morph Comment Cancelled Sezary Cell Cancelled Sodium 137 (136-145) mmol/L Potassium 3.9 (3.5-5.1) mmol/L Chloride 105 (98-107) mmol/L Carbon Dioxide 29 (21-32) mmol/L Anion Gap 4.0 (3-11) BUN 18 (7-18) mg/dl Creatinine 0.90 (0.6-1.4) mg/dl Est Cr Clr Drug Dosing 150.1 ml/min Est GFR ( Amer) 115.0 Est GFR (Non-Af Amer) 99.2 BUN/Creatinine Ratio 20.4 H (10-20) Glucose 96 (70-99) mg/dl Calcium 8.0 L (8.5-10.1) mg/dl Total Bilirubin 0.6 (0.2-1) mg/dl Direct Bilirubin 0.1 (0-0.2) mg/dl AST 40 H (15-37) U/L ALT 121 H (12-78) U/L Alkaline Phosphatase 63 (45-117) U/L Total Protein 7.7 (6.4-8.2) gm/dl Albumin 2.7 L (3.4-5.0) gm/dl Vancomycin Trough 18.3 (See Comment) mcg/ml Blood Type Antibody Screen Crossmatch 11/24/18 11/23/18 Range/Units 05:42 09:29 WBC (4.8-10.8) K/uL RBC (4.7-6.1) M/uL Hgb (14.0-18.0) g/dL Hct (42-52) % MCV (80-100) fL MCH (25-34) pg MCHC (32-36) g/dL RDW Std Deviation (36.4-46.3) fL RDW Coeff of Olu (11.5-14.5) % Plt Count (130-400) K/uL MPV (7.4-10.4) fL Immature Gran % (Auto) Neut % (Auto) Lymph % (Auto) [place] % (Auto) Eos % (Auto) Baso % (Auto) Immature Gran # (Auto) Neut # (Auto) Lymph # (Auto) [place] # (Auto) Eos # (Auto) Baso # (Auto) Neutrophils % (Manual) Band Neutrophils % Lymphocytes % (Manual) Prolymphocyte % Reactive Lymphs % (Man) Monocytes % (Manual) Eosinophils % (Manual) Basophils % (Manual) Metamyelocytes % (Man) Myelocytes % (Man) Promyelocytes % (Man) Blast Cells % (Manual) Plasma Cell % (Manual) Other Cells % Nucleated RBC % Neutrophils # (Manual) Band Neutrophils # Total Absolute Neuts Lymphocytes # (Manual) Prolymphocyte # Reactive Lymphs # Total Abs Lymphocytes Monocytes # (Manual) Eosinophils # (Manual) Basophils # (Manual) Metamyelocytes # (Man) Myelocytes # (Manual) Promyelocytes # (Man) Blast Cells # (Man) Plasma Cell # (Manual) Other Cells # Nucleated RBCs # (Man) Hypersegmented Neuts Hyposegmented Neuts Hypogranular Neuts Large Granular Lymphs # Lrg Granular Lymphs Hairy Cells Smudge Cells Toxic Granulation Toxic Vacuolation Dohle Bodies Rox Rods Hypogranular Platelets Clumped Platelets Giant Platelets Platelet Satelliting RBC Morphology Polychromasia Hypochromasia Poikilocytosis Basophilic Stippling Anisocytosis Microcytosis Macrocytosis Spherocytes Pappenheimer Bodies Sickle Cells Target Cells Tear Drop Cells Ovalocytes Stomatocytes [place] Bodies Echinocytes Acanthocytes (Spur) Rouleaux RBC Agglutinates Schistocytes RBC Morph Comment Sezary Cell Sodium (136-145) mmol/L Potassium (3.5-5.1) mmol/L Chloride (98-107) mmol/L Carbon Dioxide (21-32) mmol/L Anion Gap (3-11) BUN (7-18) mg/dl Creatinine 0.90 (0.6-1.4) mg/dl Est Cr Clr Drug Dosing 150.1 ml/min Est GFR ( Amer) 115.0 Est GFR (Non-Af Amer) 99.2 BUN/Creatinine Ratio (10-20) Glucose (70-99) mg/dl Calcium (8.5-10.1) mg/dl Total Bilirubin (0.2-1) mg/dl Direct Bilirubin (0-0.2) mg/dl AST (15-37) U/L ALT (12-78) U/L Alkaline Phosphatase (45-117) U/L Total Protein (6.4-8.2) gm/dl Albumin (3.4-5.0) gm/dl Vancomycin Trough (See Comment) mcg/ml Blood Type O Positive Antibody Screen NEGATIVE Crossmatch See Detail _ (1) Hypertension Hypertension type: unspecified Qualified Code(s): I10 - Essential (primary) hypertension
[2018-11-24] MEDS: DAPTOmycin 650 MG in SYRINGE 0 ML IV SCH (21:02)
[2018-11-24] MEDS: DOCUSATE SODIUM/SENNA 50/8.6MG TAB PO SCH (21:15)
[2018-11-25] MEDS: metroNIDAZOLE 500 MG/100 ML BAG IV SCH ×3 (05:17→20:56)
[2018-11-25] MEDS: HYDROCORTISONE HC 2.5% CRM 30GM TUBE EXT PRN ×2 (05:34→09:02)
[2018-11-25] MEDS: ACETAMINOPHEN 325 MG TAB PO PRN ×3 (05:45→17:14)
[2018-11-25] MEDS: DOCUSATE SODIUM/SENNA 50/8.6MG TAB PO SCH ×2 (05:46→20:57)
[2018-11-25] MEDS: HEPARIN 100 UNIT/ML 5ML FLUSH FLUSH PRN ×2 (07:26→22:15)
[2018-11-25 07:44] LABS: Hematocrit (blood only) 23.4 % (42-52); Hemoglobin 8.3 g/dL (14.0-18.0); Mean Corpuscular Hgb Conc 35.5 g/dL (32-36); Mean Corpuscular Volume 82.4 fL (80-100); Mean Platelet Volume 10.1 fL (7.4-10.4); Platelet Count 10 K/uL (130-400); RDW Coefficient of Variation 13.4 % (11.5-14.5); RDW Standard Deviation 40.9 fL (36.4-46.3); Red Blood Count 2.84 M/uL (4.7-6.1); White Blood Count 0.28 K/uL (4.8-10.8)
[2018-11-25 08:02] LABS: BUN Creatinine Ratio 23.7 (10-20); Calcium 8.2 mg/dl (8.5-10.1); Creatinine Clr Calc Pharmacy 162.6 ml/min; Est GFR (African American) 118.9; Est GFR (Non-African American) 102.6; Potassium 3.8 mmol/L (3.5-5.1)
[2018-11-25] MEDS: NEOMYCIN/POLYMYX/BACITR OINT 15 GM TUBE EXT SCH (09:01)
[2018-11-25] MEDS: ALLOPURINOL 300 MG TAB PO SCH (09:02)
[2018-11-25] MEDS: GABAPENTIN 100 MG CAP PO SCH ×3 (09:02→20:56)
[2018-11-25] MEDS: FILGRASTIM 480 MCG/1.6 ML VIAL SC SCH (09:02)
[2018-11-25] MEDS: CYANOCOBALAMIN 500 MCG TABLET (VITAMIN B-12) PO SCH (09:02)
[2018-11-25] MEDS: ACYCLOVIR 400 MG TAB PO SCH ×2 (09:02→20:58)
[2018-11-25] MEDS: CEFEPIME 2,000 MG in SYRINGE 7.5 ML IV SCH (17:54)
[2018-11-25] MEDS ORDERED: ANUSOL SUPP 1 EA PR PRN (20:07)
[2018-11-25] MEDS ORDERED: HYDROCORTISONE ACETATE 25 MG SUPP PR STA (20:11)
[2018-11-25] MEDS: DAPTOmycin 650 MG in SYRINGE 0 ML IV SCH (20:55)
--- NOTE | 2018-11-25 21:45 | Hospitalist Progress Note ---
Date of Service November 25, 2018 Assessment & Plan (1) Neutropenic fever: Patient febrile, tachycardic, WBC=0.4 on admission and remains severely low, differential not able to be obtained. With draining gluteal wounds-no evidence of definite abscess on pelvic MRI likely due to having no white blood cells-most likely source of infection and fevers Blood cultures remain negative to date General surgery consultation appreciated-no plans for intervention at this time especially in the setting of severe pancytopenia Fevers resolving Urinalysis is negative, blood cultures no growth to date, chest x-ray negative and no pulmonary symptoms Has remained afebrile now for over 48 hours, minimal drainage now from the buttocks wounds. Improved cellulitis surrounding -Continue to follow-up on blood cultures-if no growth by tomorrow and remains afebrile, could discharge to home on oral antibiotics -Continue neutropenic precautions -Continue empiric antibiotics with Vancomycin and Cefepime, and Flagyl for anaerobic coverage given the perirectal infection -Hematology consultation - appreciate assistance -Continue Neupogen 480 mcg SQ daily -Follow CBC If remains afebrile blood cultures no growth, can discharge to home on oral antibiotics with close follow-up with general surgery and oncology (2) MDS (myelodysplastic syndrome): Complicated MDS, 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 Patient follows with Dr. Chávez. -Continues with severe pancytopenia although platelets back down to 10 Received 2 units of PRBCs each day of the admission so far but does not need PRBCs today -Continue to transfuse platelets to keep above 15,000 transfuse 1 packed today platelets -Follow CBC daily -Hematology consultation - appreciate assistance with this case -Already has multiple appointments set up in [place] in the next couple of weeks for all of his preprocedural testing for stem cell transplant (3) Pancytopenia: As above. Patient is to go [place] [facility] [place] possible [place] transplant - his sister is a match. To be pursued on discharge when acute issues resolve -CBC daily -Continue B12 supplementation (4) Hypertension: Blood pressure stable at present -Continue to monitor (5) Abnormal LFTs: Noted. AST mildly elevated at 40, ALT mildly elevated at 121, could be side effect of medication versus illness No GI complaints. HCV antibody negative during previous stay. -To be monitored as outpatient (6) Cellulitis of buttock, right: As above-improved (7) RENE (obstructive sleep apnea): (8) Morbid obesity: BMI 48.3 -Obviously needs weight loss counseling (9) Congenital heart anomaly: History of open heart surgery at age 11-he is unclear on exactly what procedure was done He reports no cardiac issues ever since then. (10) DVT prophylaxis: Ambulation only, given severe anemia and thrombocytopenia, could not tolerate chemoprophylaxis or SCDs Disposition-continued stay but if not needing transfusion and remains afebrile blood cultures negative, can discharge home tomorrow on oral antibiotics potentially Subjective Pt reports pain in his bottom but minimal drainage. Remains afebrile. No bleeding from anywhere. His bowel movements are extremely painful. He does not want to take MiraLAX here if he is going home soon because he does not want to have incontinence or an accident. Denies chest pain or shortness of breath. I discussed his case again with oncology today Review of Systems All systems reviewed & are unremarkable except as noted in HPI & below Physical Exam 2 Vital Signs (Past 24 Hours): Last Vital Signs Temp 36.8 C 11/25/18 19:00 Pulse 88 11/25/18 19:00 Resp 20 11/25/18 19:00 BP 161/85 H 11/25/18 19:00 Pulse Ox 97 11/25/18 19:00 Constitutional: WD/WN, vitals as above + morbidly obese Eyes: PERRL, conjunctivae normal, anicteric sclerae ENMT: external ear and nose normal, oropharynx normal Neck: trachea midline, no thyromegaly Respiratory: normal respiratory effort, lungs clear to auscultation Cardiovascular: RRR, no murmur, no edema Gastrointestinal (Abdomen): normal bowel sounds, soft, nontender, no hepatosplenomegaly Rectal Exam: no hemorrhoids and + abnormal visual inspection of rectum (Right medial buttock with 2 indurated open wounds, not able to express any purulence at this time, tender to palpation, surrounding erythema is improved) Musculoskeletal: Extremities: extremities normal to inspection; no cyanosis and no clubbing Skin: no rashes, warm and dry Neurologic: moves all extremities and awake; no focal motor deficits Psychiatric: A+Ox3, euthymic affect Results & Data Laboratory Results 11/26/18 11/26/18 11/25/18 Range/Units 06:01 06:01 07:22 WBC 0.28 L* (4.8-10.8) K/uL RBC 2.86 L (4.7-6.1) M/uL Hgb 8.2 L (14.0-18.0) g/dL Hct 23.4 L (42-52) % MCV 81.8 (80-100) fL MCH 28.7 (25-34) pg MCHC 35.0 (32-36) g/dL RDW Std Deviation 39.2 (36.4-46.3) fL RDW Coeff of Olu 13.0 (11.5-14.5) % Plt Count 15 L* (130-400) K/uL MPV 9.6 (7.4-10.4) fL Immature Gran % (Auto) Cancelled Neut % (Auto) Cancelled Lymph % (Auto) Cancelled [place] % (Auto) Cancelled Eos % (Auto) Cancelled Baso % (Auto) Cancelled Immature Gran # (Auto) Cancelled Neut # (Auto) Cancelled Lymph # (Auto) Cancelled [place] # (Auto) Cancelled Eos # (Auto) Cancelled Baso # (Auto) Cancelled Neutrophils % (Manual) Cancelled Band Neutrophils % Cancelled Lymphocytes % (Manual) Cancelled Prolymphocyte % Cancelled Reactive Lymphs % (Man) Cancelled Monocytes % (Manual) Cancelled Eosinophils % (Manual) Cancelled Basophils % (Manual) Cancelled Metamyelocytes % (Man) Cancelled Myelocytes % (Man) Cancelled Promyelocytes % (Man) Cancelled Blast Cells % (Manual) Cancelled Plasma Cell % (Manual) Cancelled Other Cells % Cancelled Nucleated RBC % Cancelled Neutrophils # (Manual) Cancelled Band Neutrophils # Cancelled Total Absolute Neuts Cancelled Lymphocytes # (Manual) Cancelled Prolymphocyte # Cancelled Reactive Lymphs # Cancelled Total Abs Lymphocytes Cancelled Monocytes # (Manual) Cancelled Eosinophils # (Manual) Cancelled Basophils # (Manual) Cancelled Metamyelocytes # (Man) Cancelled Myelocytes # (Manual) Cancelled Promyelocytes # (Man) Cancelled Blast Cells # (Man) Cancelled Plasma Cell # (Manual) Cancelled Other Cells # Cancelled Nucleated RBCs # (Man) Cancelled Hypersegmented Neuts Cancelled Hyposegmented Neuts Cancelled Hypogranular Neuts Cancelled Large Granular Lymphs Cancelled # Lrg Granular Lymphs Cancelled Hairy Cells Cancelled Smudge Cells Cancelled Toxic Granulation Cancelled Toxic Vacuolation Cancelled Dohle Bodies Cancelled Rox Rods Cancelled Hypogranular Platelets Cancelled Clumped Platelets Cancelled Giant Platelets Cancelled Platelet Satelliting Cancelled RBC Morphology Cancelled Polychromasia Cancelled Hypochromasia Cancelled Poikilocytosis Cancelled Basophilic Stippling Cancelled Anisocytosis Cancelled Microcytosis Cancelled Macrocytosis Cancelled Spherocytes Cancelled Pappenheimer Bodies Cancelled Sickle Cells Cancelled Target Cells Cancelled Tear Drop Cells Cancelled Ovalocytes Cancelled Stomatocytes Cancelled [place] Bodies Cancelled Echinocytes Cancelled Acanthocytes (Spur) Cancelled Rouleaux Cancelled RBC Agglutinates Cancelled Schistocytes Cancelled RBC Morph Comment Cancelled Sezary Cell Cancelled Sodium 137 138 (136-145) mmol/L Potassium 3.8 3.8 (3.5-5.1) mmol/L Chloride 105 106 (98-107) mmol/L Carbon Dioxide 25 27 (21-32) mmol/L Anion Gap 7.0 5.0 (3-11) BUN 20 H 20 H (7-18) mg/dl Creatinine 0.77 0.83 (0.6-1.4) mg/dl Est Cr Clr Drug Dosing 175.3 162.6 ml/min Est GFR ( Amer) 122.6 118.9 Est GFR (Non-Af Amer) 105.8 102.6 BUN/Creatinine Ratio 25.4 H 23.7 H (10-20) Glucose 102 H 102 H (70-99) mg/dl Calcium 8.2 L 8.2 L (8.5-10.1) mg/dl Crossmatch 11/23/18 Range/Units 09:29 WBC (4.8-10.8) K/uL RBC (4.7-6.1) M/uL Hgb (14.0-18.0) g/dL Hct (42-52) % MCV (80-100) fL MCH (25-34) pg MCHC (32-36) g/dL RDW Std Deviation (36.4-46.3) fL RDW Coeff of Olu (11.5-14.5) % Plt Count (130-400) K/uL MPV (7.4-10.4) fL Immature Gran % (Auto) Neut % (Auto) Lymph % (Auto) [place] % (Auto) Eos % (Auto) Baso % (Auto) Immature Gran # (Auto) Neut # (Auto) Lymph # (Auto) [place] # (Auto) Eos # (Auto) Baso # (Auto) Neutrophils % (Manual) Band Neutrophils % Lymphocytes % (Manual) Prolymphocyte % Reactive Lymphs % (Man) Monocytes % (Manual) Eosinophils % (Manual) Basophils % (Manual) Metamyelocytes % (Man) Myelocytes % (Man) Promyelocytes % (Man) Blast Cells % (Manual) Plasma Cell % (Manual) Other Cells % Nucleated RBC % Neutrophils # (Manual) Band Neutrophils # Total Absolute Neuts Lymphocytes # (Manual) Prolymphocyte # Reactive Lymphs # Total Abs Lymphocytes Monocytes # (Manual) Eosinophils # (Manual) Basophils # (Manual) Metamyelocytes # (Man) Myelocytes # (Manual) Promyelocytes # (Man) Blast Cells # (Man) Plasma Cell # (Manual) Other Cells # Nucleated RBCs # (Man) Hypersegmented Neuts Hyposegmented Neuts Hypogranular Neuts Large Granular Lymphs # Lrg Granular Lymphs Hairy Cells Smudge Cells Toxic Granulation Toxic Vacuolation Dohle Bodies Rox Rods Hypogranular Platelets Clumped Platelets Giant Platelets Platelet Satelliting RBC Morphology Polychromasia Hypochromasia Poikilocytosis Basophilic Stippling Anisocytosis Microcytosis Macrocytosis Spherocytes Pappenheimer Bodies Sickle Cells Target Cells Tear Drop Cells Ovalocytes Stomatocytes [place] Bodies Echinocytes Acanthocytes (Spur) Rouleaux RBC Agglutinates Schistocytes RBC Morph Comment Sezary Cell Sodium (136-145) mmol/L Potassium (3.5-5.1) mmol/L Chloride (98-107) mmol/L Carbon Dioxide (21-32) mmol/L Anion Gap (3-11) BUN (7-18) mg/dl Creatinine (0.6-1.4) mg/dl Est Cr Clr Drug Dosing ml/min Est GFR ( Amer) Est GFR (Non-Af Amer) BUN/Creatinine Ratio (10-20) Glucose (70-99) mg/dl Calcium (8.5-10.1) mg/dl Crossmatch See Detail _ (1) Hypertension Hypertension type: unspecified Qualified Code(s): I10 - Essential (primary) hypertension
[2018-11-26] MEDS: CEFEPIME 2,000 MG in SYRINGE 7.5 ML IV SCH ×2 (00:09→08:12)
[2018-11-26] MEDS: ACETAMINOPHEN 325 MG TAB PO PRN ×2 (04:16→08:19)
[2018-11-26] MEDS: metroNIDAZOLE 500 MG/100 ML BAG IV SCH (04:16)
[2018-11-26] MEDS: HEPARIN 100 UNIT/ML 5ML FLUSH FLUSH PRN (06:03)
[2018-11-26 07:17] LABS: Hematocrit (blood only) 23.4 % (42-52); Hemoglobin 8.2 g/dL (14.0-18.0); Mean Corpuscular Volume 81.8 fL (80-100); Mean Platelet Volume 9.6 fL (7.4-10.4); Platelet Count 15 K/uL (130-400); RDW Standard Deviation 39.2 fL (36.4-46.3); Red Blood Count 2.86 M/uL (4.7-6.1); White Blood Count 0.28 K/uL (4.8-10.8)
[2018-11-26 07:21] LABS: BUN Creatinine Ratio 25.4 (10-20); Calcium 8.2 mg/dl (8.5-10.1); Creatinine Clr Calc Pharmacy 175.3 ml/min; Est GFR (African American) 122.6; Est GFR (Non-African American) 105.8; Potassium 3.8 mmol/L (3.5-5.1)
[2018-11-26] MEDS: CYANOCOBALAMIN 500 MCG TABLET (VITAMIN B-12) PO SCH (08:13)
[2018-11-26] MEDS: NEOMYCIN/POLYMYX/BACITR OINT 15 GM TUBE EXT SCH (08:13)
[2018-11-26] MEDS: ACYCLOVIR 400 MG TAB PO SCH (08:14)
[2018-11-26] MEDS: ALLOPURINOL 300 MG TAB PO SCH (08:14)
[2018-11-26] MEDS: GABAPENTIN 100 MG CAP PO SCH (08:14)
[2018-11-26] MEDS: FILGRASTIM 480 MCG/1.6 ML VIAL SC SCH (08:17)
[2018-11-26] MEDS ORDERED: TRAMADOL HCL 50 MG TABLET PO STA (11:19)
--- NOTE | 2018-11-26 11:45 | Discharge Summary ---
Date of Service November 26, 2018 Admission HPI Per Admitting Provider Mr. Palacios is a 48yo male with complex medical history to include transfusion dependent MDS with pancytopenia, HTN, morbid obesity and RENE. He was recently admitted to [facility] from 11/09/17 - 11/11/18 for neutropenic fever and transfusion of blood products. During that hospital stay his infectious workup to include blood and urine cultures and CXR were negative. No obvious source of infection was identified. He was treated with empiric Cefepime x 2 days, transfused 4 units PRBCs (Hg 4.4 on arrival, 6.5 on discharge) and 1 unit of platelets ( Platelets 15 on arrival and 10 on DC which was prior to transfusion, ANC=80). He was discharged home in stable condition. Patient presented to [facility] today with complaint of BRBPR after bowel movements that has been occurring over the last week. He reports being constipated and straining to have a bowel movement. He has known hemorrhoids. He had anoscopy performed on Wednesday which confirmed the presence of hemorrhoids - patient states that the hemorrhoids were "outies" but they were reduced to become "innies". Patient also reports decreased energy and fatigue as well as fevers/chills/sweats and body aches at home as well as occasional dizziness. He has two lesions on the left gluteus that are tender and swollen and have been leaking a "black fluid". OSH Course: Tylenol, 1L NSS. Labs obtained at [facility] revealed pancytopenia. Patient requested to be transferred to [facility] as he receives his Hematology care here. Principal Diagnosis Neutropenic fever, gluteal cellulitis, pancytopenia Discharge Exam Constitutional WD/WN, vitals as above + morbidly obese Eyes PERRL, conjunctivae normal, anicteric sclerae ENMT external ear and nose normal, oropharynx normal Neck trachea midline, no thyromegaly Respiratory normal respiratory effort, lungs clear to auscultation Cardiovascular RRR, no murmur, no edema Gastrointestinal (Abdomen) normal bowel sounds, soft, nontender, no hepatosplenomegaly Rectal Exam: no hemorrhoids and + abnormal visual inspection of rectum (Right medial buttock with 2 indurated open wounds, not able to express any purulence at this time, tender to palpation, surrounding erythema is improved) Musculoskeletal Extremities: extremities normal to inspection; no cyanosis and no clubbing Skin no rashes, warm and dry Neurologic moves all extremities and awake; no focal motor deficits Psychiatric A+Ox3, euthymic affect Discharge Data Allergies Allergy/AdvReac Type Severity Reaction Status Date / Time aspirin Allergy Severe ANAPHYLAXIS Verified 11/09/18 08:08 ibuprofen Allergy Severe Anaphylaxis Verified 11/09/18 08:08 Penicillins Allergy Intermediate HIVES Verified 11/09/18 08:08 cabbage Allergy Unknown "THROAT Verified 11/09/18 08:08 CLOSES" hydrocodone Allergy Unknown ITCH Verified 11/09/18 08:08 naproxen AdvReac Severe renal Verified 11/09/18 08:08 failure cyclobenzaprine AdvReac Unknown DIARRHEA Verified 11/09/18 08:08 Consultations 11/22/18 23:20 Consult Oncology Routine 11/23/18 08:18 Consult General Surgery Routine Ordered Studies 11/22/18 22:27 MR pelvis wo con Urgent Hospital Course (1) Neutropenic fever: Patient febrile, tachycardic, WBC=0.4 on admission and remains severely low, differential not able to be obtained. With draining gluteal wounds-no evidence of definite abscess on pelvic MRI likely due to having no white blood cells-most likely source of infection and fevers Blood cultures remain negative to date General surgery consultation appreciated-no plans for intervention at this time especially in the setting of severe pancytopenia Fevers resolved Urinalysis is negative, blood cultures no growth to date, chest x-ray negative and no pulmonary symptoms Has remained afebrile now for over 22 hours, minimal drainage now from the buttocks wounds. Improved cellulitis surrounding -Could discharge to home on oral antibiotics -Received empiric antibiotics with Vancomycin and Cefepime, and Flagyl for anaerobic coverage given the perirectal infection-will discharge to home on Omnicef and Flagyl for 10 more days -Hematology consultation - appreciate assistance -Received Neupogen 480 mcg SQ daily times 3 days -Follow CBC in 2 days as an outpatient (2) MDS (myelodysplastic syndrome): Complicated MDS, 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 Patient follows with Dr. Chávez. -Continues with severe pancytopenia but platelets up to 15 today Received 2 units of PRBCs each day for 3 days, hemoglobin stable at 8.2 -Continue to transfuse platelets to keep above 15,000 -Follow CBC daily -Hematology consultation - appreciate assistance with this case -Already has multiple appointments set up in [place] in the next couple of weeks for all of his preprocedural testing for stem cell transplant (3) Pancytopenia: As above. [place] [facility] [place] - his sister is a match. To be pursued on discharge when acute issues resolve -CBC daily -Continue B12 supplementation (4) Hypertension: Blood pressure stable at present -Continue to monitor (5) Abnormal LFTs: Noted. AST mildly elevated at 40, ALT mildly elevated at 121, could be side effect of medication versus illness No GI complaints. HCV antibody negative during previous stay. 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 (10) DVT prophylaxis: Ambulation only, given severe anemia and thrombocytopenia, could not tolerate chemoprophylaxis or SCDs Disposition-stable for dc to home Total Time Total Time Spent Total Time Spent (In Minutes): >30 min Total Time Includes: Examination of the Patient, Discharge Planning, Medication Reconciliation and Communication With Other Providers (Oncology) Discharge Plan Discharge Items Patient Disposition: Home - Self-Care Reason For Visit: THROMBOCYTOPENIA Discharge Diagnosis: Neutropenic fever, Pancytopenia, Gluteal cellulitis Condition: Fair Discharge Goals: Decrease discomfort, Diagnostic testing, Improve disease control and Therapeutic intervention Activity: Resume your previous activity Bathing Comment: Keep port dry Non-emergency contact: Primary Care Provider and Oncologist Call non-emergency contact if: you have any medication questions, your symptoms worsen, your pain is not controlled, your pain is worsening, your temperature is above 101, your wound has increased redness, your wound has increased drainage and your wound pain has increased Follow-up/Referrals: Shruti Hackett PA-C [Primary Care Provider] - Diet: Regular Addtl Provider Instructions: You were admitted with a fever and low blood counts. You were treated with antibiotics for the infection of your buttocks and you should continue on these antibiotics until they are completed as prescribed. You can continue the sitz baths at home and the topical and rectal suppositories for the hemorrhoids. You received multiple transfusions of red blood cells and platelets and your counts are improved. Please follow-up on Wednesday as scheduled to get your blood drawn to see if you will need another transfusion. Please keep all of your follow-up appointments in [place] for your transplant preparation. If you develop a fever again, please return immediately to the hospital. Prescriptions: New hydrocortisone [Proctosol HC] 2.5 % Cream With Perineal Applicator 1 applic EXT Q8 PRN (Reason: hemorrhoids) Qty: 15 RF: 0 allopurinol 300 mg Tablet 300 mg PO DAILY Qty: 30 RF: 0 [id number] [Triple Antibiotic] 3.5mg-400 unit- 5,000 unit/ gram Ointment 1 applic EXT DAILY Qty: 15 RF: 0 metronidazole 500 mg tablet 500 mg PO Q8H 10 Days Qty: 30 RF: 0 cefdinir 300 mg capsule 300 mg PO BID 10 Days Qty: 20 RF: 0 hydrocortisone acetate [Anusol-HC] 25 mg suppository 25 mg OH DAILY PRN (Reason: hemorrhoids) 14 Days RF: 0 tramadol 50 mg tablet 50 mg PO Q8H PRN (Reason: pain) Qty: 30 RF: 0 docusate sodium 100 mg capsule 100 mg PO BID Qty: 60 RF: 0 Continue acyclovir 400 mg Tablet 800 mg PO BID Qty: 0 RF: 3 sennosides [senna] 8.6 mg Tablet 8.6 mg PO BID RF: 0 acetaminophen [Tylenol Extra Strength] 500 mg Tablet 500 mg PO Q8 PRN (Reason: Pain) RF: 0 gabapentin [Neurontin] 100 mg Capsule 200 mg PO TID RF: 0 cyanocobalamin (vitamin B-12) [Vitamin B-12] 500 mcg Tablet 1,000 mcg PO QAM Qty: 30 RF: 11 Stand-Alone Forms: [facility]charge Orders: Discharge Order (Routine); Ordered 11/26/18 Ordered By: Shanique Randall Admission Data Admit Date/Time: 11/22/18 20:15 Attending Provider: Tussey,Shanique B Admit Provider: Yolanda Giles Primary Care Provider: Shruti Hackett Other Providers: Edgar Chávez Chunjie Service: Medical Other Pending Studies at Discharge: Yes Studies:: Final Blood Culture result
== END 2018-11-26 13:37 | disposition home or self-care (01) | DRG 809 ==
LOC: SUATTDRO 20:15 → 2S 20:15 → 4E 11-24 16:19